=== PATIENT | male | born 1965 | race Caucasian/White ===

== ENCOUNTER 2020-04-18 12:39 | Inpatient (IN) | payer OTHER ==
[~2020-04-18] VITALS: Ht 198.1 cm; Wt 202.1 kg
--- NOTE | 2020-04-18 13:06 | ED Cough/URI ---
General Chief Complaint: Respiratory Problems Stated Complaint: SOA Source: patient Exam Limitations: no limitations History of Present Illness Date Seen by Provider: Apr 18, 2020 Time Seen by Provider: 13:04 Initial Comments To ER with reports of shortness of breath and fever up to 101 for about 48 hours. He tries to cough but has no productivity to the cough. He just had small bowel obstruction surgery by Dr. Alexis at [facility] 2 weeks ago. Timing/Duration: constant Associated Symptoms: cough, shortness of breath Allergies and Home Medications Allergies Coded Allergies: No Known Drug Allergies (Unverified , 04/18/20) Patient Home Medication List Home Medication List Reviewed: Yes Review of Systems Review of Systems Constitutional: see HPI, fever EENTM: see HPI Respiratory: see HPI, cough, short of breath Genitourinary: no symptoms reported Musculoskeletal: no symptoms reported Skin: no symptoms reported Psychiatric/Neurological: No Symptoms Reported Hematologic/Lymphatic: No Symptoms Reported Immunological/Allergic: no symptoms reported Physical Exam Vital Signs - First Documented 04/18/20 12:55 O2 Delivery Room Air Capillary Refill : Height: '" Weight: lbs. oz. kg; BMI Method: General Appearance: WD/WN, no apparent distress, obese Eyes: Bilateral Eye Normal Inspection, Bilateral Eye PERRL, Bilateral Eye EOMI Respiratory: lungs clear, normal breath sounds, no respiratory distress, no accessory muscle use Cardiovascular: no murmur, tachycardia Gastrointestinal: normal bowel sounds, non tender, soft, other (midline abdominal incision is clean dry and intact with a small eschar in the very middle of this without drainage or secondary cellulitis changes.) Extremities: normal range of motion, normal inspection Neurologic/Psychiatric: alert, normal mood/affect, oriented x 3 Skin: normal color, warm/dry Focused Exam Lactate Level 04/18/20 13:00: Lactic Acid Level 2.35*H Lactic Acid Level Laboratory Tests Test 04/18/20 13:00 Lactic Acid Level 2.35 MMOL/L (0.50-2.00) *H Progress/Results/Core Measures Suspected Sepsis SIRS Temperature: Pulse: Respiratory Rate: Laboratory Tests 04/18/20 13:00: White Blood Count 10.1 Blood Pressure / Mean: 04/18/20 13:00: Lactic Acid Level 2.35*H Laboratory Tests 04/18/20 13:00: Creatinine 0.79, Platelet Count 289, Total Bilirubin 0.4 04/18/20 14:08: Results/Orders Lab Results Laboratory Tests Test 04/18/20 13:00 04/18/20 14:08 Range/Units White Blood Count 10.1 4.3-11.0 10^3/uL Red Blood Count 4.20 L 4.35-5.85 10^6/uL Hemoglobin 11.5 L 13.3-17.7 G/DL Hematocrit 37 L 40-54 % Mean Corpuscular Volume 87 80-99 FL Mean Corpuscular Hemoglobin 27 25-34 PG Mean Corpuscular Hemoglobin Concent 32 32-36 G/DL Red Cell Distribution Width 15.9 H 10.0-14.5 % Platelet Count 289 130-400 10^3/uL Mean Platelet Volume 10.6 H 7.4-10.4 FL Neutrophils (%) (Auto) 68 42-75 % Lymphocytes (%) (Auto) 19 12-44 % Monocytes (%) (Auto) 10 0-12 % Eosinophils (%) (Auto) 3 0-10 % Basophils (%) (Auto) 0 0-10 % Neutrophils # (Auto) 6.9 1.8-7.8 X 10^3 Lymphocytes # (Auto) 1.9 1.0-4.0 X 10^3 Monocytes # (Auto) 1.0 0.0-1.0 X 10^3 Eosinophils # (Auto) 0.3 0.0-0.3 10^3/uL Basophils # (Auto) 0.0 0.0-0.1 10^3/uL Sodium Level 140 135-145 MMOL/L Potassium Level 4.3 3.6-5.0 MMOL/L Chloride Level 105 98-107 MMOL/L Carbon Dioxide Level 24 21-32 MMOL/L Anion Gap 11 5-14 MMOL/L Blood Urea Nitrogen 8 7-18 MG/DL Creatinine 0.79 0.60-1.30 MG/DL Estimat Glomerular Filtration Rate > 60 BUN/Creatinine Ratio 10 Glucose Level 119 H 70-105 MG/DL Lactic Acid Level 2.35 *H 0.50-2.00 MMOL/L Calcium Level 8.4 L 8.5-10.1 MG/DL Corrected Calcium 9.1 8.5-10.1 MG/DL Magnesium Level 2.1 1.6-2.4 MG/DL Total Bilirubin 0.4 0.1-1.0 MG/DL Aspartate Amino Transf (AST/SGOT) 48 H 5-34 U/L Alanine Aminotransferase (ALT/SGPT) 33 0-55 U/L Alkaline Phosphatase 59 40-136 U/L Myoglobin 46.7 10.0-92.0 NG/ML Troponin I 0.372 *H <0.028 NG/ML B-Type Natriuretic Peptide 272.0 H <100.0 PG/ML Total Protein 7.5 6.4-8.2 GM/DL Albumin 3.1 L 3.2-4.5 GM/DL Procalcitonin 0.11 H <0.10 NG/ML Coronavirus 2019 ([facility]) Negative Negative My Orders Orders - SAI STINSON APRN Cbc With Automated Diff (04/18/20 12:48) Magnesium (04/18/20 12:48) Chest 1 View, Ap/Pa Only (04/18/20 12:48) Ekg Tracing (04/18/20 12:48) Comprehensive Metabolic Panel (04/18/20 12:48) Myoglobin Serum (04/18/20 12:48) Protime With Inr (04/18/20 12:48) Partial Thromboplastin Time (04/18/20 12:48) O2 (04/18/20 12:48) Monitor-Rhythm Ecg Trace Only (04/18/20 12:48) Lipid Panel (04/19/20 06:00) Ed Iv/Invasive Line Start (04/18/20 12:48) BNP (04/18/20 12:48) Fibrin Degradation Products (04/18/20 12:48) Troponin I (04/18/20 12:48) Blood Culture (04/18/20 12:48) Lactic Acid Analyzer (04/18/20 12:48) Covid 19 Inhouse Test (04/18/20 12:48) Procalcitonin (Pct) (04/18/20 13:12) Coronavirus Sars-Cov-2 So 2018 (04/18/20 13:39) Aspirin Chewable Tablet (Baby Aspirin Ch (04/18/20 14:00) Coronavirus Sars-Cov-2 So 2018 (04/18/20 14:01) Ct Angio Chest W (04/18/20 14:03) Vital Signs/I&O 04/18/20 12:55 B/P (MAP) O2 Delivery Room Air Capillary Refill : Diagnostic Imaging Diagonstic Imaging: Xray, CT Comments NAME: MELVI RUEDA REC#: [id number] PT STATUS: REG ER : 1965 PHYSICIAN: SAI STINSON APRN ADMIT DATE: 04/18/20/ER Draft Date of Exam:04/18/20 CHEST 1 VIEW, AP/PA ONLY INDICATION: Shortness of breath and fever. EXAMINATION: Frontal chest obtained at 01:44 p.m. FINDINGS: Heart is borderline enlarged. There is some minimal infiltrate in the right lung base. There is no pneumothorax or gross pleural fluid. There is a questionable nodular density versus bony artifact over the left upper lobe, consider apical lordotic views for further evaluation. IMPRESSION: Mild right basilar infiltrate. Borderline heart size. Questionable nodular density versus bony artifact over left upper lobe, consider further evaluation with apical lordotic view. Dictated on workstation # [id number] Dict: 04/18/20 1356 Trans: 04/18/20 1359 [facility] [id number] Interpreted by: DIANNA STEEN MD Electronically signed by: Departure Communication (Admissions) Time/Spoke to Admitting Phy: 14:[address] Garner, we'll admit, spoke with Dr. Gomez, we'll get a 2-D echocardiogram today, treatment dose Lovenox, aspirin. Trend the troponin's. Patient is 6 foot 6 and 490 pounds, he will not fit on the CT table for a CT angiogram. We'll do treatment dose Lovenox. Impression Primary Impression: Dyspnea Additional Impressions: Person under investigation for COVID-19 NSTEMI (non-ST elevated myocardial infarction) Disposition: ADMITTED INPATIENT Condition: Stable Admissions Decision to Admit Reason: Admit from ER (General) Decision to Admit/Date: Apr 18, 2020 Time/Decision to Admit Time: 14:23 SAI STINSON APRN Apr 18, 2020 13:06
[2020-04-18 13:21] LABS: BASOPHILS % (AUTO) 0 % (0-10); EOSINOPHILS # (AUTO) 0.3 10^3/uL (0.0-0.3); EOSINOPHILS % (AUTO) 3 % (0-10); HEMATOCRIT 37 % (40-54); HEMOGLOBIN 11.5 G/DL (13.3-17.7); LYMPHOCYTES # (AUTO) 1.9 X 10^3 (1.0-4.0); LYMPHOCYTES % (AUTO) 19 % (12-44); MEAN CORPUSCULAR HEMOGLOBIN 27 PG (25-34); MEAN CORPUSCULAR HGB CONC 32 G/DL (32-36); MEAN CORPUSCULAR VOLUME 87 FL (80-99); MEAN PLATELET VOLUME 10.6 FL (7.4-10.4); MONOCYTES % (AUTO) 10 % (0-12); NEUTROPHILS # (AUTO) 6.9 X 10^3 (1.8-7.8); NEUTROPHILS % (AUTO) 68 % (42-75); PLATELET COUNT 289 10^3/uL (130-400); WHITE BLOOD COUNT 10.1 10^3/uL (4.3-11.0)
[2020-04-18 13:31] LABS: ALBUMIN 3.1 GM/DL (3.2-4.5); CHLORIDE 105 MMOL/L (98-107); POTASSIUM 4.3 MMOL/L (3.6-5.0); SODIUM 140 MMOL/L (135-145)
[2020-04-18 13:32] LABS: CALCIUM 8.4 MG/DL (8.5-10.1)
[2020-04-18 13:33] LABS: GLUCOSE 119 MG/DL (70-105)
[2020-04-18 13:34] LABS: TOTAL PROTEIN 7.5 GM/DL (6.4-8.2)
[2020-04-18 13:35] LABS: BILIRUBIN,TOTAL 0.4 MG/DL (0.1-1.0); CARBON DIOXIDE 24 MMOL/L (21-32)
[2020-04-18 13:37] LABS: ALKALINE PHOSPHATASE 59 U/L (40-136); CREATININE SERUM 0.79 MG/DL (0.60-1.30); GFR ESTIMATED > 60
[2020-04-18 13:38] LABS: BUN/CREATININE RATIO 10
[2020-04-18 13:40] LABS: ALANINE AMINOTRANSFERASE 33 U/L (0-55); MAGNESIUM 2.1 MG/DL (1.6-2.4)
--- NOTE | 2020-04-18 13:50 | NUR ---
notified at 1351 0.372 trop , lactid 2.35
[2020-04-18] MEDS ORDERED: ASPIRIN 81 MG CHEW (CHILDREN'S ASA) PO ONE (14:00)
--- NOTE | 2020-04-18 14:00 | Diagnostic Imaging Report ---
INDICATION: Shortness of breath and fever. EXAMINATION: Frontal chest obtained at 01:44 p.m. FINDINGS: Heart is borderline enlarged. There is some minimal infiltrate in the right lung base. There is no pneumothorax or gross pleural fluid. There is a questionable nodular density versus bony artifact over the left upper lobe, consider apical lordotic views for further evaluation. IMPRESSION: Mild right basilar infiltrate. Borderline heart size. Questionable nodular density versus bony artifact over left upper lobe, consider further evaluation with apical lordotic view. Dictated by: Dictated on workstation # [id number]
[2020-04-18 14:22] VITALS: BP 129/77
[2020-04-18 14:47] LABS: INR 1.2 (0.8-1.4); PROTHROMBIN TIME PATIENT 15.9 SEC (12.2-14.7)
[2020-04-18] MEDS ORDERED: GABAPENTIN 300 MG (NEURONTIN) CAP PO ONE (15:00)
--- NOTE | 2020-04-18 15:07 | History & Physical-Hospitalist ---
History of Present Illness HPI/Chief Complaint Pt is a 54yoCM with a PMH of spinal stenosis and recent SBO s/p resection at [facility] in [place] who presented to the ER due to SOB and fever. He states that he had been doing well post op but then developed a fever over the past couple of days with SOB. He denies any sick contacts other than being in the hospital. He denies any abnormal leg swelling. He states his SOB is worse when he attempts to take a deep breath and he feels like he can only take half as deep of a breath as normal. Source: patient Date Seen 04/18/20 Time Seen by a Provider: 15:08 Attending Physician Nataly Barrios MD PCP Referring Physician Date of Admission Apr 18, 2020 at 14:42 Home Medications & Allergies Home Medications Reviewed patient Home Medication Reconciliation performed by pharmacy medication reconciliations financial services technician and/or nursing. Patients Allergies have been reviewed. Allergies Allergies Coded Allergies Tetanus Vaccines and Toxoid (Verified Allergy, Intermediate, Rash, 04/18/20) STATES HE GETS 104 FEVER ALONG WITH A RASH AND KNOTS WHERTE THE ADMINISTRATION OCCURED Past Kryqlbs-Rztxok-Nmhbid Hx Past Med/Social Hx: Reviewed Nursing Past Med/Soc Hx Patient Social History Marrital Status: Alcohol Use: Denies Use Smoking Status: Never a Smoker Recent Foreign Travel: No Contact w/other who traveled: No Recent Infectious Disease Expo: No Past Medical History Surgeries: Bowel Surgery Musculoskeletal: Chronic Back Pain Family History Reviewed Nursing Family Hx No Pertinent Family Hx Review of Systems Constitutional: chills, fever EENTM: no symptoms reported Respiratory: cough; No phlegm; short of breath Cardiovascular: No chest pain, No edema, No Hx of Intervention Gastrointestinal: see HPI; No abdominal pain, No constipation, No diarrhea, No nausea, No vomiting Genitourinary: no symptoms reported Musculoskeletal: no symptoms reported Skin: no symptoms reported Psychiatric/Neurological: No Symptoms Reported Physical Exam Physical Exam Vital Signs Vital Signs - First Documented 04/18/20 04/18/20 04/18/20 04/20/20 12:55 14:22 17:04 22:59 Temp 37.2 Pulse 81 Resp 22 B/P (MAP) 129/77 (94) Pulse Ox 94 O2 Delivery Room Air O2 Flow Rate 1.00 FiO2 50 Capillary Refill : Less Than 3 Seconds Height, Weight, BMI Height: '" Weight: lbs. oz. kg; BMI Method: General Appearance: No Apparent Distress, WD/WN, Obese Eyes: Bilateral Eye Normal Inspection, Bilateral Eye PERRL HEENT: Normal ENT Inspection, Moist Mucous Membranes Neck: Normal Inspection, Supple Respiratory: Lungs Clear (though auscultation limited by body habitus); No Crackles, No Rhonci, No Wheezing Cardiovascular: Regular Rate, Rhythm, No Murmur Gastrointestinal: Normal Bowel Sounds, Non Tender, Soft Neurologic/Psychiatric: Alert, Oriented x3, Normal Mood/Affect Skin: Normal Color, Warm/Dry Results Results/Procedures Labs Laboratory Tests 04/21/20 12:35 Patient resulted labs reviewed. Imaging: Reviewed Imaging Report Imaging [facility] [place] NAME: MELVI RUEDA REC#: [id number] PT STATUS: REG ER : 1965 PHYSICIAN: SAI STINSON APRN ADMIT DATE: 04/18/20/ER Draft Date of Exam:04/18/20 CHEST 1 VIEW, AP/PA ONLY INDICATION: Shortness of breath and fever. EXAMINATION: Frontal chest obtained at 01:44 p.m. FINDINGS: Heart is borderline enlarged. There is some minimal infiltrate in the right lung base. There is no pneumothorax or gross pleural fluid. There is a questionable nodular density versus bony artifact over the left upper lobe, consider apical lordotic views for further evaluation. IMPRESSION: Mild right basilar infiltrate. Borderline heart size. Questionable nodular density versus bony artifact over left upper lobe, consider further evaluation with apical lordotic view. Dictated on workstation # [id number] Dict: 04/18/20 1356 Trans: 04/18/20 1359 [facility] [phone] Interpreted by: DIANNA STEEN MD Electronically signed by: Assessment/Plan Admission Diagnosis Dyspnea Admission Status: Inpatient Order (span 2 midnights) Reason for Inpatient Admission: see below Assessment and Plan Dyspnea Etiology unclear D dimer very elevated though may be related to recent surgery unfortunately cannot get a CTA or VQ scan due to patient's weight Lovenox to cover for now Dopplers ordered of lower extremities COVID PCR pending Procal is 0.11 so will defer abx for now elevated troponin ASA given Cardiology consulted, appreciate recs Telemetry trend Spinal stenosis Continue home gabapentin DVT ppx: Lovenox Critical Care Critically Ill Patient Diagnosis/Problems Diagnosis/Problems (1) Elevated d-dimer (2) Hypoxia (3) Morbid obesity (4) Person under investigation for COVID-19 Status: Acute (5) Dyspnea Status: Acute Qualifiers: Dyspnea type: acute respiratory distress Qualified Codes: R06.03 - Acute respiratory distress (6) NSTEMI (non-ST elevated myocardial infarction) Status: Acute NATALY BARRIOS MD Apr 18, 2020 15:07
--- NOTE | 2020-04-18 15:13 | NUR ---
report taken at this time from LILIANA Pascal from emergency dept., this RN will assume care of this patient when he arrives to room 413-1.
--- NOTE | 2020-04-18 15:15 | NUR ---
called and spoke with Breonna Morales spouse, notified and updated with results and admission to room 413.
--- NOTE | 2020-04-18 15:53 | NUR ---
MELVI RUEDA admitted to room 413-1, with an admitting diagnosis of ELEVATED TROPONIN, on 04/18/20 from ER via CART, accompanied by ED COVID STAFF.MELVI RUEDA introduced to surroundings, call light, bed controls, phone, TV, temperature control, lights, meal times, smoking policy, visitor policy, side rail policy, bathrooms and showers. Patient Rights given to patient in the handbook. MELVI RUEDA verbalizes understanding that [facility] is not responsible for the loss or damage to any personal effects or valuables that are kept in the patients posession during their hospitalization. MELVI RUEDA verbalizes understanding of Interdisciplinary Patient Education. Patient and/or family were informed about the Rapid Response Team and its purpose.
[2020-04-18] MEDS ORDERED: CATHETER FLUSH 10 ML SYR IV PRN (16:15)
[2020-04-18] MEDS: LACTATED RINGERS 1,000 ML IV SCH (16:17)
[2020-04-18 17:04] VITALS: BP 153/65
--- NOTE | 2020-04-18 17:31 | Consultation-Cardiology ---
HPI-Cardiology Cardiology Consultation: Date of Consultation 04/18/20 Date of Admission Attending Physician Clotilde Barrios MD Admitting Physician Consulting Physician Keisha GOMEZ MD HPI: Time Seen by a Provider: 17:31 Chief Complaint: Shortness of breath This is a 54-year-old gentleman with morbid obesity. He had recent small bowel obstruction requiring resection in [facility]. He presented to the ER with complains of shortness of breath and fever for a day. He has been having shortness of breath for a few days now. Denies active smoking. Pertinent family history is negative. He denies any chest pain, syncope or near syncope. He denies any leg swelling. Review of Systems-Cardiology Review of Systems Constitutional: As described under HPI; No As described under HPI, No no symptoms reported, No chills, No fever, No lightheadedness Eyes: No As described under HPI, No no symptoms reported, No blindness, No blurred vision, No contact lenses, No drainage, No decreased acuity, No foreign body sensation, No pain, No vision change Ears/Nose/Throat: No As described under HPI, No no symptoms reported, No chroni c hearing loss, No ear discharge, No ear pain, No nasal drainage, No ulcerations Respiratory: No no symptoms reported; As described under HPI; No As described under HPI, No cough, No orthopnea; shortness of breath; No SOB with excertion Cardiovascular: No no symptoms reported; As described under HPI; No As described under HPI, No chest pain, No edema, No irregular heart rate, No lightheadedness, No palpitations Gastrointestinal: No no symptoms reported, No As described under HPI, No abdomen distended, No abdominal pain, No blood streaked bowels, No constipation, No diarrhea, No nausea, No vomiting, No stool coloration changes Genitourinary: No As described under HPI, No burning, No dysuria, No discharge, No frequency, No flank pain, No hematuria, No urgency Skin: No rash, No skin related problems, No ulcerations Psychiatric/Neurological: No anxiety, No depression, No seizure, No focal weakness, No syncope Hematologic: No bleeding abnormalities UIG-Uwepsw-Yfziug Hx Patient Social History Marrital Status: Alcohol Use: Denies Use Smoking Status: Never a Smoker Recent Foreign Travel: No Recent Infectious Disease Expo: No Hospitalization with Isolation: Denies Past Medical History PMH As described under Assessment. Allergies and Home Medications Allergies Coded Allergies: Tetanus Vaccines and Toxoid (Verified Allergy, Intermediate, Rash, 04/18/20) STATES HE GETS 104 FEVER ALONG WITH A RASH AND KNOTS WHERTE THE ADMINISTRATION OCCURED Home Medications Acetaminophen 500 Mg Tablet, 1,000 MG PO Q6H PRN for PAIN-MILD (1-4) OR TEMPATURE, (Reported) Calcium Carbonate 400 Mg Tab.chew, 400-800 MG PO PRN PRN for INDIGESTION, (Reported) Gabapentin 300 Mg Capsule, 300 MG PO TID, (Reported) Multivits,Ca,Min/Iron/FA/Lycop 1 Each Tablet, 1 EACH PO DAILY, (Reported) Patient Home Medication List Home Medication List Reviewed: Yes Physical Exam-Cardiology Physical Exam Vital Signs/I&O 04/21/20 04/21/20 04/21/20 04/21/20 06:46 07:08 07:45 08:23 Temp 36.4 Pulse 93 92 Resp 20 B/P (MAP) 136/77 (96) Pulse Ox 90 94 O2 Delivery Vapotherm Vapotherm Vapotherm O2 Flow Rate 20.00 20.00 20.00 55.00 FiO2 55 55 04/21/20 04/21/20 04/21/20 10:20 11:00 14:18 Temp 36.6 Pulse 95 Resp 20 B/P (MAP) 138/86 (103) Pulse Ox 92 93 92 O2 Delivery Nasal Cannula Vapotherm Nasal Cannula O2 Flow Rate 4.00 20.00 5.00 55.00 04/21/20 00:00 Intake Total 2190 ml Output Total 1025 ml Balance 1165 ml Capillary Refill : Less Than 3 Seconds Constitutional: AAO x 3, other (morbid obesity.) HEENT: PERRL; No discharge; hearing is well preserved, oral hygience is good; No ulceration, No xanthelasmas are seen Neck: No carotid bruit; carotid pulses are 2 + bilaterally Respiratory: accessory muscle use, respiratory distress, chest is bilaterally symmetric, lungs clear to auscultation Cardiovascular: regular rate-rhythm, tachycardia, S1 and S2; No diastolic murmur, No systolic murmur Gastrointestinal: soft, distended, audible bowel sounds; No spleenomegaly Rectal: deferred Extremities: normal range of motion, non-tender, normal inspection; No clubbing, No cyanosis, No significant edema Neurologic/Psychiatric: no motor/sensory deficits, alert, normal mood/affect, oriented x 3, power is 5/5 both on sides Skin: normal color, warm/dry; No rash, No ulcerations Data Review Labs Laboratory Tests 04/21/20 12:35: Sodium Level 140, Potassium Level 3.5L, Chloride Level 106, Carbon Dioxide Level 22, Anion Gap 12, Blood Urea Nitrogen 9, Creatinine 0.81, Estimat Glomerular Filtration Rate > 60, BUN/Creatinine Ratio 11, Glucose Level 137H, Calcium Level 8.2L Microbiology 04/19/20 MRSA Screen - Final, Complete MRSA not isolated 04/18/20 Blood Culture - Preliminary, Resulted No growth ECG Impression ECG Initial ECG Rhythm: S.Tach, PVC A/P-Cardiology Assessment/Admission Diagnosis Shortness of breath, acute respiratory failure, Morbid obesity, Recent abdominal surgery, Positive D dimer, Positive cardiac enzymes. Plan Acute respiratory failure, respiratory distress. Patient was requiring 4-5 L of oxygen, oxygen saturation in the low 90s. Unclear etiology. Positive D dimer, recent abdominal surgery. CT angiography of the chest is indicated. Agree with starting Lovenox. Lower extremity Dopplers. Positive cardiac enzymes with shortness of breath. Non-ST elevation [place] cannot be ruled out. Will recommend an echocardiogram and serial troponin. Morbid obesity Recent abdominal surgery, deferred to the primary team. Thank you for your consultation. Please call me if you have any questions. Lucina Gomez MD, FACP, FACC, FSCAI, FHRS, CCDS Interventional Cardiology Cardiac Electrophysiology Vascular Medicine and Endovascular Interventions Keisha GOMEZ MD Apr 18, 2020 17:31
[2020-04-18] MEDS: ENOXAPARIN 300 MG/3 ML (LOVENOX) MULTI-DOSE VIAL SQ SCH (17:43)
[2020-04-18] MEDS ORDERED: IOHEXOL 350 MG/ML 100 ML (OMNIPAQUE 350) VIAL IV ONE (18:30)
[2020-04-18] MEDS ORDERED: NS 100 ML (IVPB) BAG IV ONE (18:30)
[2020-04-18] MEDS ORDERED: HOLD METFORMIN - RECEIVED CONTRAST 20 ML VIAL IV SCH (18:30)
[2020-04-18] MEDS: RT-ALBUTEROL INHALER HFA (VENTOLIN HFA) 18 GM IH SCH ×2 (19:44→22:34)
[2020-04-18 20:20] VITALS: BP 136/75
[2020-04-18] MEDS: GABAPENTIN 300 MG (NEURONTIN) CAP PO SCH (20:36)
--- NOTE | 2020-04-18 21:10 | NUR ---
PT DOWN TO CT PER WHEELCHAIR AT THIS TIME.
--- NOTE | 2020-04-18 21:30 | NUR ---
PT BACK TO ROOM FROM CT PER WHEELCHAIR. ASSISTED PT BACK TO BED. BED RAILS X4 FOR SAFETY AND PER PT REQUEST. ALL NEEDS MET AT THIS TIME.
--- NOTE | 2020-04-18 21:50 | Diagnostic Imaging Report ---
PROCEDURE: CT angiography of the chest with contrast. TECHNIQUE: Multiple contiguous axial images were obtained through the chest after uneventful bolus administration of intravenous contrast. 3D reconstructed CTA MIP acquisitions were also performed. Auto Exposure Controls were utilized during the CT exam to meet ALARA standards for radiation dose reduction. DATE: April 18, 2020. COMPARISON: Chest radiograph April 18, 2020. INDICATION: 54-year-old male, shortness of breath and chest pain. FINDINGS: There is a 5 mm calcified left lower lobe granuloma on axial image 80. There is a nonspecific airspace consolidation in the right lower lobe on axial image 77. There is no identified pneumothorax. There is no pleural effusion. The central airways are patent. There is pulmonary embolus bridging across the main pulmonary artery extending into the left and right pulmonary arteries as well as upper, middle lobe, and lower lobe segmental and subsegmental branches. The main pulmonary artery diameter measures 3.1 cm which is just beyond upper limits of normal and may indicate elevated pressures. The heart is not enlarged. There is no identified pericardial effusion. There is no identified noncalcified abnormally enlarged mediastinal, hilar, or axillary lymph node meeting CT size criteria for adenopathy. There is a right pericardial lesion measuring 5.1 x 2.7 cm in size with internal attenuation of -23 Hounsfield units. 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 The imaged portions of the upper abdomen are unremarkable. There are degenerative changes of the spine. There is no identified acute bony abnormality. IMPRESSION: CT CHEST. 1. Extensive pulmonary embolus bridging across the main pulmonary artery into right and left pulmonary arteries as well as upper, middle lobe, and lower lobe segmental and subsegmental branches. There is slight dilation of the main pulmonary artery diameter which may relate to elevated pressures. 2. Nonspecific focal airspace consolidation in the right lower lobe which could relate to infarct or other alveolar consolidative process. Findings called on 2144 hours on April 18, 2020. Dictated by: Dictated on workstation # [id number]
--- NOTE | 2020-04-18 21:50 | NUR ---
DR. METZGER CALLED THIS RN IN REFERENCE TO HIS CT SCAN SHOWING POSITIVE FOR A PE. PT ALREADY ON THERAPEUTIC ANTICOAGULATION PER DR. RUBIO HAVE BEEN STABLE. WILL CONTINUE TO MONITOR PT AND REPORT ANY CHANGES IN PT CONDITION.
[2020-04-18 23:15] VITALS: BP 130/72
[2020-04-19] VITALS (11 sets, daily range): BP systolic 109–163; BP diastolic 64–102
[2020-04-19] MEDS: LACTATED RINGERS 1,000 ML IV SCH (01:47)
[2020-04-19] MEDS: RT-ALBUTEROL INHALER HFA (VENTOLIN HFA) 18 GM IH SCH ×6 (02:55→21:48)
[2020-04-19] MEDS: ENOXAPARIN 300 MG/3 ML (LOVENOX) MULTI-DOSE VIAL SQ SCH ×2 (04:46→16:24)
[2020-04-19 05:01] LABS: BASOPHILS % (AUTO) 0 % (0-10); EOSINOPHILS # (AUTO) 0.1 10^3/uL (0.0-0.3); EOSINOPHILS % (AUTO) 1 % (0-10); HEMATOCRIT 31 % (40-54); HEMOGLOBIN 9.5 G/DL (13.3-17.7); LYMPHOCYTES # (AUTO) 1.9 X 10^3 (1.0-4.0); LYMPHOCYTES % (AUTO) 21 % (12-44); MEAN CORPUSCULAR HEMOGLOBIN 27 PG (25-34); MEAN CORPUSCULAR HGB CONC 31 G/DL (32-36); MEAN CORPUSCULAR VOLUME 87 FL (80-99); MEAN PLATELET VOLUME 9.6 FL (7.4-10.4); MONOCYTES # (AUTO) 0.8 X 10^3 (0.0-1.0); MONOCYTES % (AUTO) 9 % (0-12); NEUTROPHILS % (AUTO) 69 % (42-75); PLATELET COUNT 275 10^3/uL (130-400); WHITE BLOOD COUNT 8.8 10^3/uL (4.3-11.0)
[2020-04-19 05:14] LABS: CHLORIDE 105 MMOL/L (98-107); POTASSIUM 3.6 MMOL/L (3.6-5.0); SODIUM 139 MMOL/L (135-145)
[2020-04-19 05:15] LABS: ALBUMIN 2.9 GM/DL (3.2-4.5); CALCIUM 7.9 MG/DL (8.5-10.1)
[2020-04-19 05:16] LABS: TRIGLYCERIDES 106 MG/DL (<150); VLDL CHOLESTEROL 21 MG/DL (5-40)
[2020-04-19 05:17] LABS: GLUCOSE 136 MG/DL (70-105); TOTAL PROTEIN 6.4 GM/DL (6.4-8.2)
[2020-04-19 05:18] LABS: CARBON DIOXIDE 23 MMOL/L (21-32)
[2020-04-19 05:19] LABS: BILIRUBIN,TOTAL 0.4 MG/DL (0.1-1.0)
[2020-04-19 05:20] LABS: ALKALINE PHOSPHATASE 58 U/L (40-136); CREATININE SERUM 0.78 MG/DL (0.60-1.30); GFR ESTIMATED > 60
--- NOTE | 2020-04-19 05:20 | NUR ---
COVID RESULTS CAME BACK NEGATIVE. DR. METZGER NOTIFIED. ORDER RECEIVED TO DISCONTINUE ISOLATION AT THIS TIME.
[2020-04-19 05:21] LABS: CHOLESTEROL 114 MG/DL (< 200)
[2020-04-19 05:22] LABS: BUN/CREATININE RATIO 13
[2020-04-19 05:23] LABS: HDL CHOLESTEROL 22 MG/DL (40-60)
[2020-04-19 05:24] LABS: ALANINE AMINOTRANSFERASE 25 U/L (0-55)
--- NOTE | 2020-04-19 08:11 | Pulmonary Consultation ---
History of Present Illness History of Present Illness Date Seen by Provider: Apr 19, 2020 Time Seen by Provider: 13:30 Date of Admission Allergies and Home Medications Allergies Coded Allergies: Tetanus Vaccines and Toxoid (Verified Allergy, Intermediate, Rash, 04/18/20) STATES HE GETS 104 FEVER ALONG WITH A RASH AND KNOTS WHERTE THE ADMINISTRATION OCCURED Home Medications Acetaminophen 500 Mg Tablet, 1,000 MG PO Q6H PRN for PAIN-MILD (1-4) OR TEMPATURE, (Reported) Calcium Carbonate 400 Mg Tab.chew, 400-800 MG PO PRN PRN for INDIGESTION, (Reported) Gabapentin 300 Mg Capsule, 300 MG PO TID, (Reported) Multivits,Ca,Min/Iron/FA/Lycop 1 Each Tablet, 1 EACH PO DAILY, (Reported) Past Uavnbti-Fcwwxi-Avzvgx Hx Past Med/Social Hx: Reviewed Nursing Past Med/Soc Hx Patient Social History Alcohol Use: Denies Use Smoking Status: Never a Smoker Recent Foreign Travel: No Contact w/Someone Who Travel: No Recent Infectious Disease Expo: No Physical Abuse: No Sexual Abuse: No Mistreated: No Past Medical History Bowel Surgery Chronic Back Pain Family Medical History Reviewed Nursing Family Hx FH: cancer 19 FATHER, No Pertinent Family Hx Review of Systems Time Seen by Provider: 13:31 Sepsis Event Evaluation Height, Weight, BMI Height: '" Weight: lbs. oz. kg; 51.62 BMI Method: Exam Exam Vital Signs Date Time Temp Pulse Resp B/P (MAP) Pulse Ox O2 Delivery O2 Flow Rate FiO2 04/19/20 04:43 37.3 86 18 109/64 (79) 93 Nasal Cannula 1.50 04/19/20 02:55 Nasal Cannula 1.00 04/19/20 01:44 37.0 101 19 124/85 (98) 93 Nasal Cannula 1.50 04/19/20 01:00 105 04/18/20 23:15 36.8 92 19 130/72 (91) 96 Nasal Cannula 1.50 04/18/20 22:35 92 Nasal Cannula 1.00 04/18/20 20:37 Nasal Cannula 1.50 04/18/20 20:20 37.1 103 20 136/75 (95) 95 Nasal Cannula 1.50 04/18/20 19:44 93 Nasal Cannula 1.00 04/18/20 19:00 106 04/18/20 17:55 95 Nasal Cannula 1.50 04/18/20 17:04 37.2 100 20 153/65 95 Nasal Cannula 1.50 1.00 04/18/20 16:50 90 04/18/20 14:24 94 Nasal Cannula 1.00 04/18/20 14:22 81 22 129/77 (94) 94 Nasal Cannula 1.00 04/18/20 12:55 Room Air I & O 04/19/20 07:00 Intake Total 1391 ml Balance 1391 ml Height & Weight Height: '" Weight: lbs. oz. kg; 51.62 BMI Method: General Appearance: No Apparent Distress, WD/WN, Obese HEENT: Normal ENT Inspection, Moist Mucous Membranes Neck: Normal Inspection, Supple Respiratory: Lungs Clear (though auscultation limited by body habitus); No Crackles, No Rhonci, No Wheezing Cardiovascular: Regular Rate, Rhythm, No Murmur Capillary Refill: Less Than 3 Seconds Gastrointestinal: normal bowel sounds, non tender, soft, other (midline ab dominal incision is clean dry and intact with a small eschar in the very middle of this without drainage or secondary cellulitis changes.) Neurologic/Psychiatric: Alert, Oriented x3, Normal Mood/Affect Skin: Normal Color, Warm/Dry Results Lab Laboratory Tests 04/18/20 13:00 04/19/20 04:39 Assessment/Plan Assessment/Plan Extensive Bilateral Pulmonary Emboli Continue Lovenox Dopplers pending COVID PCR negative Echo pending elevated troponin Likely due to PE Cardiology consulted Telemetry Spinal stenosis Continue home gabapentin DVT ppx: Lovenox SAAD AMBRIZ DO Apr 19, 2020 08:11
[2020-04-19] MEDS: GABAPENTIN 300 MG (NEURONTIN) CAP PO SCH ×3 (08:12→20:36)
[2020-04-19] MEDS: ASPIRIN 81 MG CHEW (CHILDREN'S ASA) PO SCH (08:13)
[2020-04-19] MEDS ORDERED: GABA300C PO (09:17)
[2020-04-19] MEDS ORDERED: ACET-2267 PO (09:17)
[2020-04-19] MEDS ORDERED: CALC10009 PO (09:17)
[2020-04-19] MEDS ORDERED: MULT-1030 PO (09:17)
--- NOTE | 2020-04-19 09:17 | NUR ---
SPOKE WITH THE PT AND CALLED [facility] TO COMPLETE THE MED REC 04-06-2020 GABAPENTIN 300MG #90/30DS OTC MEDS: TYLENOL MENS MTV TUMS
--- NOTE | 2020-04-19 10:57 | Progress Note - Hospitalist ---
Subjective HPI/CC On Admission Date Seen by Provider: Apr 19, 2020 Time Seen by Provider: 10:53 Pt is a 54yoCM with a PMH of spinal stenosis and recent SBO s/p resection at [facility] in [place] who presented to the ER due to SOB and fever. He states that he had been doing well post op but then developed a fever over the past couple of d ays with SOB. He denies any sick contacts other than being in the hospital. He denies any abnormal leg swelling. He states his SOB is worse when he attempts to take a deep breath and he feels like he can only take half as deep of a breath as normal. Subjective/Events-last exam Pt reports breathing better today. No complaints. Discussed CTA findings consistent with PE. Focused Exam Lactate Level 04/18/20 15:15: Lactic Acid Level 2.52*H 04/18/20 18:00: Lactic Acid Level 2.23*H 04/18/20 20:28: Lactic Acid Level 1.95 Objective Exam Vital Signs Vital Signs Date Time Temp Pulse Resp B/P (MAP) Pulse Ox O2 Delivery O2 Flow Rate FiO2 04/19/20 10:39 90 Nasal Cannula 2.00 04/19/20 08:00 36.8 100 20 136/81 (99) Capillary Refill : Less Than 3 Seconds General Appearance: No Apparent Distress, WD/WN, Obese Respiratory: Lungs Clear, No Accessory Muscle Use, Other (on 2lpm) Cardiovascular: Regular Rate, Rhythm, No Murmur Gastrointestinal: Normal Bowel Sounds, Soft Extremity: No Calf Tenderness, No Pedal Edema Neurologic/Psychiatric: Alert, Oriented x3 Results/Procedures Lab Laboratory Tests 04/18/20 13:00 04/19/20 04:39 Patient resulted labs reviewed. Imaging: Reviewed Imaging Report Assessment/Plan Assessment and Plan Assess & Plan/Chief Complaint Extensive Bilateral Pulmonary Emboli Weight actually 202kg so was able to get CTA which revealed saddle embolus Continue Lovenox Dopplers done and read pending COVID PCR negative Echo pending I discussed with Dr Gomez who will review echo to evaluate for any right heart strain elevated troponin Likely due to PE Cardiology consulted, appreciate recs Telemetry trend Spinal stenosis Continue home gabapentin DVT ppx: Lovenox Diagnosis/Problems Diagnosis/Problems (1) Elevated d-dimer (2) Hypoxia (3) Morbid obesity (4) Person under investigation for COVID-19 Status: Acute (5) Dyspnea Status: Acute (6) NSTEMI (non-ST elevated myocardial infarction) Status: Acute (7) Bilateral pulmonary embolism Status: Acute (8) Saddle pulmonary embolus Qualifiers: Chronicity: acute Acute cor pulmonale presence: unspecified Qualified Codes: I26.92 - Saddle embolus of pulmonary artery without acute cor pulmonale Clinical Quality Measures DVT/VTE Risk/Contraindication: Risk Factor Score Per Nursin RFS Level Per Nursing on Admit: 4+=Very High NATALY DANIELSON MD Apr 19, 2020 10:57
--- NOTE | 2020-04-19 11:47 | Diagnostic Imaging Report ---
CLINICAL INDICATION: Patient with calf cramping in left leg. Postop bowel resection two weeks ago. COMPARISON: None. PROCEDURE: Real-time lower extremity venous Doppler duplex evaluation is performed from the inguinal region through the popliteal fossa. The calf venous structures are also evaluated. FINDINGS: LEFT LOWER EXTREMITY: There is occlusive thrombus within the left popliteal vein which involves visualized portions of the posterior tibial and peroneal veins. The remainder of the left lower extremity deep venous structures more proximally are patent. RIGHT LOWER EXTREMITY: The right deep venous system is well visualized and is easily compressible. There is no evidence of deep venous thrombosis, valvular incompetence, or significant collateral circulation. IMPRESSION: 1: There is occlusive deep venous thrombosis involving the popliteal vein and visualized posterior tibial and peroneal veins. 2: There is no ultrasound Doppler evidence of deep venous thrombosis in the right lower extremity. Results of this report were discussed with Dr. Clotilde Barrios via the telephone on 04/19/2020 at 1140 hours. Dictated by: Dictated on workstation # [id number]
[2020-04-19] MEDS ORDERED: NS IV 1000 ML 1,000 ML ONE (15:19)
[2020-04-19] MEDS ORDERED: LIDOCAINE 1% INJ 20 ML 20 ML VIAL ONE (15:19)
[2020-04-19] MEDS ORDERED: HEParin (CATH LAB) 2,000 ML IV ONE (15:20)
[2020-04-19] MEDS ORDERED: HEParin 1000 UNIT/ML (10ML VIAL) FOR BOLUS ONE (15:21)
[2020-04-19] MEDS ORDERED: WATER IV ONE ×6 (15:30)
[2020-04-19] MEDS ORDERED: TENECTEPLASE IV ONE ×6 (15:30)
--- NOTE | 2020-04-19 16:00 | NUR ---
PT WAS TAKEN OFF FLOOR FOR PROCEDURE
[2020-04-19] MEDS ORDERED: fentaNYL INJECTION 100 MCG/2 ML AMP ONE (16:06)
[2020-04-19] MEDS ORDERED: MIDAZOLAM 5 MG/5 ML (VERSED) VIAL ONE (16:06)
[2020-04-19] MEDS ORDERED: HEParin DRIP 25000 UNIT/500ML 500 ML IV ONE (16:37)
[2020-04-19] MEDS ORDERED: TENECTEPLASE 5 MG in NS IV 500 ML 500 ML IV SCH (16:45)
--- NOTE | 2020-04-19 17:05 | Cardiac Procedure Note-CS/ASA ---
Pre-Procedure Note Pre-Op Procedure Note H&P Reviewed The H&P was reviewed, patient examined and no changes noted. Date H&P Reviewed: Apr 19, 2020 Time H&P Reviewed: 09:00 Conscious Sedation Pre-Proced Time 09:00 ASA Score 3 For ASA 3 and 4: Consider anesthesia and medical clearance. Also, for patients with a history of failed moderate sedation consider anesthesia. Airway Lungs Heart ASA score ASA 1: a normal healthy patient ASA 2: a patient with a mild systemic disease (mid diabetes, controlled hypertension, obesity ASA 3: a patient with a severe systemic disease that limits activity (angina, COPD, prior Myocardial infarction) ASA 4: a patient with an incapacitating disease that is a constant threat to life (CHF, renal failure) ASA 5: a moribund patient not expected to survive 24 hrs. (ruptured aneurysm) ASA 6: a declared brain- patient whose organs are being harvested. For emergent operations, add the letter E after the classification Mallampati Classification Grade 1 Sedation Plan Analgesia, Amnesia, Plan communicated to team members, Discussed options with patient/fam, Discussed risks with patient/fam The patient is an appropriate candidate to undergo the planned procedure, sedation, and anesthesia. The patient immediately re-assessed prior to indication. Keisha BAIRES MD Apr 19, 2020 17:05
--- NOTE | 2020-04-19 17:06 | Coronary Angiography & PCI ---
Peripheral Angio & Interv Catheter Directed Thrombolysis for PE PERFORMING INTERVENTIONALIST: Dr. Lucina Gomez INDICATION: saddle pulmonary embolism with RV strain PREOPERATIVE INDICATION: saddle pulmonary embolism with RV strain POSTOPERATIVE DIAGNOSIS: saddle pulmonary embolism with RV strain; status post catheter directed thrombolysis. HISTORY: 54 year old male with recent small bowel obstruction surgery in [place] (two weeks ago). He presents with shortness of breath. CT scan of the chest shows saddle embolus with large sub-occlusive thrombi in the right and left PA. e chocardiogram showed RV enlargement with RV dysfunction, increased PA pressure and D-shaped septum suggesting volume and pressure overload. oxygen saturation is 92 percent at 4 L. Therefore this is a hemodynamically significant saddle embolus with [id number] respiratory distress. I discussed at length with the patient and catheter directed thrombolysis was recommended. Informed consent was taken including risk for intracranial hemorrhage and even . Patient accepted all risks and would like to proceed with pulmonary angiogram and possible intervention and thrombolysis. PROCEDURE PERFORMED: 1. Nonselective pulmonary angiogram. 2. Selective bilateral pulmonary angiogram. 3. Right heart catheterization for shortness of breath. 4. RV angiogram. 5. Catheter directed thrombolysis and bilateral pulmonary arteries. 6. Overnight thrombolytic infusion. SPECIMENS: None. ANESTHESIA: Conscious sedation. BLOOD LOSS: 20 mL. COMPLICATIONS: None. CONTRAST USED: 100 ml. FLUOROSCOPY DOSE: 508 Mgy. FLUOROSCOPY TIME: 10.6 minutes. ANTICOAGULATION: IV heparin DESCRIPTION OF PROCEDURE: The patient was brought to the cathode builder after informed consent was taken. All the risks and complications were explained in detail. The patient was draped and prepped in the usual sterile fashion. Access was gained right femoral vein with a 6 Hebrew sheath. We advanced a pigtail catheter over the J-wire and placed it in the main pulmonary artery. Nonselective angiogram was done. The pigtail catheter was then advanced into the right pulmonary artery and a selective angiogram was done. tenecteplase 5 mg was injected slowly. the pigtail catheter was then advanced into the left pulmonary and selective angiogram was done. tenecteplase 5 mg was injected slowly. The pigtail catheter was then pulled back into the RV and RV angiogram was done. Pressures were also measured. The pigtail catheter was then pulled back into the RA and pressure were measured again. We then exchanged for an infusion catheter. However we were not able to get the infusion cath into the right pulmonary artery or the MPA in a stable position. Therefore I exchanged back to a pigtail catheter and that was placed in the main pulmonary artery/right pulmonary artery and thrombolytic infusion was started according to the protocol. IV heparin was also started at 300 units per hour. Infusion will continued overnight. The sheath was sutured in placed. FINDINGS: PA pressure 57/20 mmHg, right pulmonary artery 61/25 mmHg, Left pulmonary artery 58/25 mmHg, RV pressure 61/6 mmHg. RA pressure 14 mmHg. CONCLUSION: Saddle PE with RV strain and mild respiratory distress - s/p catheter directed thrombolysis. Overnight catheter infusion of thrombolytics. We will bring back patient tomorrow. Lucina Gomez MD, FACP, FACC, [facility] Vascular Medicine and Endovascular Interventions Keisha GOMEZ MD Apr 19, 2020 17:05
[2020-04-19] MEDS ORDERED: PATIENT MAY USE OWN MEDS, ALL PO SCH (17:15)
--- NOTE | 2020-04-19 17:49 | Cardiology Progress Note ---
Cardiology SOAP Progress Note Subjective: Respiratory distress, shortness of breath Objective: I&O/Vital Signs 04/21/20 04/21/20 04/21/20 04/21/20 06:46 07:08 07:45 08:23 Temp 36.4 Pulse 93 92 Resp 20 B/P (MAP) 136/77 (96) Pulse Ox 90 94 O2 Delivery Vapotherm Vapotherm Vapotherm O2 Flow Rate 20.00 20.00 20.00 55.00 FiO2 55 55 04/21/20 04/21/20 04/21/20 10:20 11:00 14:18 Temp 36.6 Pulse 95 Resp 20 B/P (MAP) 138/86 (103) Pulse Ox 92 93 92 O2 Delivery Nasal Cannula Vapotherm Nasal Cannula O2 Flow Rate 4.00 20.00 5.00 55.00 04/21/20 00:00 Intake Total 2190 ml Output Total 1025 ml Balance 1165 ml Constitutional: AAO x 3, apparent distress Respiratory: accessory muscle use, respiratory distress, chest is bilaterally symmetric Cardiovascular: regular rate-rhythm, tachycardia, S1 and S2 Gastrointestional: soft, distended, audible bowel sounds Extremities: normal range of motion, non-tender, normal inspection Neurologic/Psychiatric: no motor/sensory deficits, alert, normal mood/affect, oriented x 3 Skin: normal color, warm/dry Results/Procedures: Labs Laboratory Tests 04/21/20 12:35: Sodium Level 140, Potassium Level 3.5L, Chloride Level 106, Carbon Dioxide Level 22, Anion Gap 12, Blood Urea Nitrogen 9, Creatinine 0.81, Estimat Glomerular Filtration Rate > 60, BUN/Creatinine Ratio 11, Glucose Level 137H, Calcium Level 8.2L Microbiology 04/19/20 MRSA Screen - Final, Complete MRSA not isolated 04/18/20 Blood Culture - Preliminary, Resulted No growth A/P: Assessment/Dx: Acute respiratory failure, saddle pulmonary embolism, Acute RV dysfunction, RV strain. Morbid obesity, Recent abdominal surgery, Positive D dimer, Positive cardiac enzymes. Plan: Acute respiratory failure, respiratory distress. Patient was requiring 4-5 L of oxygen, oxygen saturation in the low 90s. Unclear etiology. Positive D dimer, recent abdominal surgery. CT angiography of the chest showed saddle pulmonary embolism with large pulmonary embolism bilaterally. Urgent echocardiogram showed D-shaped septum with RV dysfunction and pulmonary hypertension. Patient was in respiratory distress. I discussed at length with the primary team as well as the patient and recommended catheter directed thrombolysis. Informed consent was taken including 1 percent risk of due to intracranial hemorrhage. Patient accepted all risks and will like to proceed with pulmonary angiogram, possible intervention, catheter directed thrombolysis today. Positive cardiac enzymes with shortness of breath. Likely secondary to large pulmonary embolism. Positive cardiac enzymes in a patient with large pulmonary embolism is a poor prognostic sign. Aggressive therapy is recommended. Morbid obesity Recent abdominal surgery, deferred to the primary team. Thank you for your consultation. Please call me if you have any questions. Lucina Gmoez MD, FACP, FACC, FSCAI, FHRS, CCDS Interventional Cardiology Cardiac Electrophysiology Vascular Medicine and Endovascular Interventions Focused Exam Lactate Level 04/18/20 18:00: Lactic Acid Level 2.23*H 04/18/20 20:28: Lactic Acid Level 1.95 Keisha GOMEZ MD Apr 19, 2020 17:49
--- NOTE | 2020-04-19 17:55 | NUR ---
DR BAIRES AT BEDSIDE NOTIFIED THIS NURSE TO WATCH FOR ECTOPY. IF MULTIPLE OR RUNS OF PVCS ARE NOTED THE NURSED NEEDS TO CALL DR BAIRES AND TO PULL OUT THE SHEATH 6 INCHES. WILL CONTINUE TO MONITOR.
[2020-04-19] MEDS ORDERED: LIDOCAINE UROJET 2% GEL 10 ML PKG ONE (18:16)
[2020-04-19] MEDS ORDERED: morphine INJ 10 MG/ML 1ML (SYR OR VIAL) IVP PRN (19:15)
[2020-04-19] MEDS: morphine INJ 4 MG/ML 1 ML (VIAL/SYRINGE) IV PRN (20:37)
[2020-04-19] MEDS: NS IV 1000 ML 1,000 ML IV SCH (22:06)
[2020-04-19] MEDS ORDERED: HEParin DRIP 25000 UNIT/500ML 500 ML IV SCH (23:20)
[2020-04-19] MEDS: HEParin 1000 UNIT/ML (10ML VIAL) FOR BOLUS IV SCH (23:25)
[2020-04-19] MEDS ORDERED: HEParin 1000 UNIT/ML (10ML VIAL) FOR BOLUS IV ONE (23:30)
[2020-04-19] MEDS ORDERED: ASPIRIN 325 MG (5 GR) TABLET PO ONE (23:30)
[2020-04-20] VITALS (21 sets, daily range): BP systolic 118–171; BP diastolic 70–118
[2020-04-20] MEDS: RT-ALBUTEROL INHALER HFA (VENTOLIN HFA) 18 GM IH SCH ×7 (02:57→22:36)
[2020-04-20 03:31] LABS: BASOPHILS % (AUTO) 0 % (0-10); EOSINOPHILS # (AUTO) 0.2 10^3/uL (0.0-0.3); EOSINOPHILS % (AUTO) 2 % (0-10); HEMATOCRIT 29 % (40-54); HEMOGLOBIN 8.9 g/dL (13.3-17.7); LYMPHOCYTES # (AUTO) 1.5 10^3/uL (1.0-4.0); LYMPHOCYTES % (AUTO) 18 % (12-44); MEAN CORPUSCULAR HEMOGLOBIN 27 pg (25-34); MEAN CORPUSCULAR HGB CONC 31 g/dL (32-36); MEAN CORPUSCULAR VOLUME 87 fL (80-99); MEAN PLATELET VOLUME 9.8 fL (9.0-12.2); MONOCYTES # (AUTO) 0.8 10^3/uL (0.0-1.0); MONOCYTES % (AUTO) 10 % (0-12); NEUTROPHILS # (AUTO) 5.8 10^3/uL (1.8-7.8); NEUTROPHILS % (AUTO) 70 % (42-75); PLATELET COUNT 277 10^3/uL (130-400); WHITE BLOOD COUNT 8.3 10^3/uL (4.3-11.0)
[2020-04-20 03:44] LABS: INR 1.1 (0.8-1.4); PROTHROMBIN TIME PATIENT 14.6 SEC (12.2-14.7)
[2020-04-20 03:46] LABS: BUN/CREATININE RATIO 14; CALCIUM 7.5 MG/DL (8.5-10.1); CARBON DIOXIDE 21 MMOL/L (21-32); CHLORIDE 107 MMOL/L (98-107); CREATININE SERUM 0.73 MG/DL (0.60-1.30); GFR ESTIMATED > 60; GLUCOSE 118 MG/DL (70-105); MAGNESIUM 2.1 MG/DL (1.6-2.4); POTASSIUM 3.6 MMOL/L (3.6-5.0); SODIUM 140 MMOL/L (135-145)
[2020-04-20] MEDS: HEParin 1000 UNIT/ML (10ML VIAL) FOR BOLUS IV SCH (04:33)
[2020-04-20] MEDS: morphine INJ 4 MG/ML 1 ML (VIAL/SYRINGE) IV PRN ×2 (04:49→11:39)
--- NOTE | 2020-04-20 05:54 | Pulmonary Progress Note ---
Subjective Time Seen by a Provider: 05:52 Subjective/Events-last exam No complications noted. Sepsis Event Evaluation Height, Weight, BMI Height: '" Weight: lbs. oz. kg; 51.62 BMI Method: Focused Exam Lactate Level 04/18/20 15:15: Lactic Acid Level 2.52*H 04/18/20 18:00: Lactic Acid Level 2.23*H 04/18/20 20:28: Lactic Acid Level 1.95 Exam Exam Vital Signs Date Time Temp Pulse Resp B/P (MAP) Pulse Ox O2 Delivery O2 Flow Rate FiO2 04/20/20 05:00 86 28 135/86 (102) 92 Nasal Cannula 4.00 04/20/20 04:27 90 141/78 (99) 95 Nasal Cannula 5.00 04/20/20 03:00 89 33 153/107 (122) 95 Nasal Cannula 5.00 04/20/20 02:58 96 Nasal Cannula 5.00 04/20/20 02:00 88 157/110 (126) 96 Nasal Cannula 5.00 04/20/20 01:15 91 15 169/85 (113) 94 Nasal Cannula 5.00 04/20/20 01:00 89 04/20/20 01:00 89 164/107 (126) 94 Nasal Cannula 5.00 04/20/20 00:00 92 13 171/94 (119) 95 Nasal Cannula 5.00 04/20/20 00:00 Nasal Cannula 5.00 04/19/20 23:00 92 24 153/102 (119) 95 Nasal Cannula 5.00 04/19/20 22:00 91 34 159/94 (115) 96 Nasal Cannula 5.00 04/19/20 21:48 96 Nasal Cannula 5.00 04/19/20 21:00 89 163/83 (109) 94 Nasal Cannula 5.00 04/19/20 20:00 37.2 04/19/20 20:00 98 23 160/84 (109) 94 Nasal Cannula 5.00 04/19/20 20:00 Nasal Cannula 5.00 04/19/20 19:07 94 Nasal Cannula 5.00 04/19/20 19:00 89 04/19/20 19:00 96 21 138/87 (104) 95 Nasal Cannula 5.00 04/19/20 17:45 95 Nasal Cannula 5.00 04/19/20 17:45 92 18 135/77 (96) 92 Nasal Cannula 5.00 04/19/20 15:43 36.9 98 18 134/82 (99) 94 Nasal Cannula 3.00 04/19/20 15:41 93 Nasal Cannula 2.00 04/19/20 13:15 36.2 88 04/19/20 12:38 103 04/19/20 12:00 35.6 112 20 141/70 (93) 93 Nasal Cannula 1.50 04/19/20 10:39 90 Nasal Cannula 2.00 04/19/20 08:15 86 Room Air 04/19/20 08:00 93 Nasal Cannula 1.50 04/19/20 08:00 36.8 100 20 136/81 (99) 92 Nasal Cannula 1.50 I & O 04/20/20 07:00 Intake Total 2280 ml Output Total 0 ml Balance 2280 ml Height & Weight Height: '" Weight: lbs. oz. kg; 51.62 BMI Method: General Appearance: No Apparent Distress, WD/WN, Obese HEENT: Normal ENT Inspection, Moist Mucous Membranes Neck: Normal Inspection, Supple Respiratory: Lungs Clear (though auscultation limited by body habitus); No Crackles, No Rhonci, No Wheezing Cardiovascular: Regular Rate, Rhythm, No Murmur Capillary Refill: Less Than 3 Seconds Gastrointestinal: normal bowel sounds, non tender, soft, other (midline abd ominal incision is clean dry and intact with a small eschar in the very middle of this without drainage or secondary cellulitis changes.) Extremity: No Calf Tenderness, No Pedal Edema Neurologic/Psychiatric: Alert, Oriented x3, Normal Mood/Affect Skin: Normal Color, Warm/Dry Results Lab Laboratory Tests 04/18/20 13:00 04/19/20 04:39 04/20/20 02:58 Assessment/Plan Assessment/Plan Extensive Bilateral Pulmonary Emboli -Central TKN -Hep gtt Continue Lovenox Dopplers pending COVID PCR negative Echo pending elevated troponin Likely due to PE Cardiology consulted Telemetry Spinal stenosis Continue home gabapentin DVT ppx: Lovenox SAAD AMBRIZ DO Apr 20, 2020 05:54
[2020-04-20] MEDS ORDERED: NS IV 1000 ML 0 ML ONE (07:23)
[2020-04-20] MEDS ORDERED: LIDOCAINE 1% INJ 20 ML 20 ML VIAL ONE (07:23)
[2020-04-20] MEDS ORDERED: HEParin (CATH LAB) 1,000 ML IV ONE ×2 (07:23)
--- NOTE | 2020-04-20 07:26 | NUR ---
04/19/202117 THIS RN CONTACTED DR BAIRES TO CLARIFY ORDERS REGARDING HEPARIN DOSING AND PTT SCHEDULING. INSTRUCTED TO "FOLLOW THE PROTOCOL." TITRATED DRIP ACCORDINGLY. 2943 HEPARIN INCREASED FROM 300 UNITS/HR TO 450 UNITS/HR.
[2020-04-20] MEDS ORDERED: MIDAZOLAM 5 MG/5 ML (VERSED) VIAL ONE (07:53)
[2020-04-20] MEDS ORDERED: fentaNYL INJECTION 100 MCG/2 ML AMP ONE (07:54)
[2020-04-20] MEDS: NS IV 1000 ML 1,000 ML IV SCH (08:01)
--- NOTE | 2020-04-20 09:13 | Cardiac Procedure Note-CS/ASA ---
Pre-Procedure Note Pre-Op Procedure Note H&P Reviewed The H&P was reviewed, patient examined and no changes noted. Date H&P Reviewed: Apr 20, 2020 Time H&P Reviewed: 08:00 Conscious Sedation Pre-Proced Time 08:00 ASA Score 3 For ASA 3 and 4: Consider anesthesia and medical clearance. Also, for patients with a history of failed moderate sedation consider anesthesia. Airway Lungs Heart ASA score ASA 1: a normal healthy patient ASA 2: a patient with a mild systemic disease (mid diabetes, controlled hypertension, obesity ASA 3: a patient with a severe systemic disease that limits activity (angina, COPD, prior Myocardial infarction) ASA 4: a patient with an incapacitating disease that is a constant threat to life (CHF, renal failure) ASA 5: a moribund patient not expected to survive 24 hrs. (ruptured aneurysm) ASA 6: a declared brain- patient whose organs are being harvested. For emergent operations, add the letter E after the classification Mallampati Classification Grade 1 Sedation Plan Analgesia, Amnesia, Plan communicated to team members, Discussed options with patient/fam, Discussed risks with patient/fam The patient is an appropriate candidate to undergo the planned procedure, sedation, and anesthesia. The patient immediately re-assessed prior to indication. Keisha BAIRES MD Apr 20, 2020 09:13
--- NOTE | 2020-04-20 09:14 | Coronary Angiography Report ---
Peripheral Angiography Pulmonary angiography and right heart catheterization DATE OF SERVICE: 04/20/20 PERFORMING INTERVENTIONALIST: Dr. Lucina Gomez INDICATION: Saddle pulmonary embolism with RV strain. Overnight thrombolytic infusion. PREOPERATIVE INDICATION: Saddle pulmonary embolism with RV strain. Overnight thrombolytic infusion. POSTOPERATIVE DIAGNOSIS: Saddle pulmonary embolism with RV strain. HISTORY: This is a 54-year-old gentleman with morbid obesity and recent small bowel obstruction requiring surgery. Shortness of breath for the last one week or more. CT scan showed saddle embolus with huge burden of thrombus in bilateral pulmonary arteries. RV strain was noted. He was brought to the lab yesterday and received catheter directed thrombolysis. We left the pigtail in the MPA and continued overnight thrombolytic infusion. PROCEDURE PERFORMED: 1. Bilateral nonselective pulmonary angiogram. 2. Right heart catheterization. 3. Removal of pigtail catheter under fluoroscopy. SPECIMENS: None. ANESTHESIA: Conscious sedation. BLOOD LOSS: 20 mL. COMPLICATIONS: None. CONTRAST USED: 35 ml. FLUOROSCOPY DOSE: 165 Mgy. FLUOROSCOPY TIME: 1.9 minutes. ANTICOAGULATION: IV heparin DESCRIPTION OF PROCEDURE: The patient was brought to the liaison inspection laboratory assistant after informed consent was taken. All the risks and complications were explained in detail. The patient was draped and prepped in the usual sterile fashion. Right femoral area was prepped with Betadine. Under fluoroscopy the pigtail catheter which was in the main pulmonary artery was taken out. The 5 Gabonese sheath was exchanged for a new 5 Gabonese sheath. We then went in with a pigtail catheter which was placed in the main pulmonary artery. Nonselective bilateral pulmonary angiogram was done which did not reveal any proximal filling defects. Right heart catheterization was done for persistent shortness of breath. Pulmonary artery pressure 60/26 mmHg, RV pressure 50/15 mmHg. RVEDP 20 mmHg, right atrial pressure 15 mmHg. CONCLUSION: Saddle pulmonary embolism, status post tenecteplase infusion overnight. Continue Eliquis therapy for at least 6 months. Lucina Gomez MD, FACP, FACC, [facility] Vascular Medicine and Endovascular Interventions Keisha GOMEZ MD Apr 20, 2020 09:14
[2020-04-20] MEDS ORDERED: PATIENT MAY USE OWN MEDS, ALL PO SCH (09:15)
[2020-04-20] MEDS ORDERED: NS IV 1000 ML 1,000 ML IV SCH (09:15)
[2020-04-20] MEDS: ASPIRIN 81 MG CHEW (CHILDREN'S ASA) PO SCH (10:21)
[2020-04-20] MEDS: APIXABAN 5 MG (ELIQUIS) TABLET PO SCH ×2 (10:21→21:45)
[2020-04-20] MEDS: GABAPENTIN 300 MG (NEURONTIN) CAP PO SCH ×3 (10:21→21:45)
--- NOTE | 2020-04-20 12:23 | Progress Note - Hospitalist ---
Subjective HPI/CC On Admission Date Seen by Provider: Apr 20, 2020 Time Seen by Provider: 12:17 Pt is a 54yoCM with a PMH of spinal stenosis and recent SBO s/p resection at [facility] in [place] who presented to the ER due to SOB and fever. He states that he had been doing well post op but then developed a fever over the past couple of d ays with SOB. He denies any sick contacts other than being in the hospital. He denies any abnormal leg swelling. He states his SOB is worse when he attempts to take a deep breath and he feels like he can only take half as deep of a breath as normal. Subjective/Events-last exam Pt reports doing well. Just got back from [facility]. No complaints. Focused Exam Lactate Level 04/18/20 15:15: Lactic Acid Level 2.52*H 04/18/20 18:00: Lactic Acid Level 2.23*H 04/18/20 20:28: Lactic Acid Level 1.95 Objective Exam Vital Signs Vital Signs Date Time Temp Pulse Resp B/P (MAP) Pulse Ox O2 Delivery O2 Flow Rate FiO2 04/20/20 11:29 Nasal Cannula 4.00 04/20/20 09:49 95 04/20/20 08:00 36.1 04/20/20 06:50 85 04/20/20 06:00 21 132/93 (106) Capillary Refill : Less Than 3 Seconds General Appearance: No Apparent Distress, Obese Respiratory: Lungs Clear, No Respiratory Distress Cardiovascular: Regular Rate, Rhythm, No Murmur Gastrointestinal: Normal Bowel Sounds, Non Tender, Soft Extremity: No Calf Tenderness, No Pedal Edema Neurologic/Psychiatric: Alert, Oriented x3 Results/Procedures Lab Laboratory Tests 04/20/20 02:58 Patient resulted labs reviewed. Imaging: Reviewed Imaging Report Assessment/Plan Assessment and Plan Assess & Plan/Chief Complaint Extensive Bilateral Pulmonary Emboli with saddle embolus Went to [facility] yesterday for catheter guided thrombolytics LLE DVT Echo showed right heart strain COVID PCR negative Returned to [facility] today elevated troponin Likely due to PE Cardiology consulted, appreciate recs Telemetry trend Spinal stenosis Continue home gabapentin DVT ppx: Lovenox Diagnosis/Problems Diagnosis/Problems (1) Elevated d-dimer (2) Hypoxia (3) Morbid obesity (4) Person under investigation for COVID-19 Status: Acute (5) Dyspnea Status: Acute (6) NSTEMI (non-ST elevated myocardial infarction) Status: Acute (7) Bilateral pulmonary embolism Status: Acute (8) Saddle pulmonary embolus Qualifiers: Chronicity: acute Acute cor pulmonale presence: unspecified Qualified Codes: I26.92 - Saddle embolus of pulmonary artery without acute cor pulmonale Clinical Quality Measures DVT/VTE Risk/Contraindication: Risk Factor Score Per Nursin RFS Level Per Nursing on Admit: 4+=Very High NATALY DANIELSON MD Apr 20, 2020 12:23
--- NOTE | 2020-04-20 12:30 | NUR ---
THIS NURSE SPOKE WITH DR DANIELSON AND DR BAIRES, PT MAY TRANSFER TO FOURTH FLOOR AFTER BEDREST IS COMPLETE. HOUSE SUP NOTIFIED.
--- NOTE | 2020-04-20 14:10 | NUR ---
RD ASSESSMENT PMHx: SBO; morbid obesity PT INTERACTION: Pt was awake and pleasant during nutrition assessment. Pt states unsure of current appetite. "I'm still feeling the effects of morphine right now, so I'm not quite sure of my current appetite." Pt states appetite at home is normally good. Note avg PO intake 66% x3meal, per chart review. Pt states following a regular diet at home, and has no issues with chewing/swallowing food. Pt states no recent issues with nausea, vomiting, or constipation. Pt states some recent issues with diarrhea, and that his last BM was a couple of days ago. Note pt not currently on bowel regimen per chart review. Pt states recent wt loss, but states it's "a lot of weight lost fast." Note unable to determine recent wt hx, per chart review. ABNORMAL NUTRITION-RELATED LAB VALUES LOW: Ca 7.5 HIGH: glu 118 Est. kcal needs: 2425 kcal | 25 kcal/kg IBW, based on IBW of 97.3 kg (214#) Est. Pro needs: 97 g Pro | 1.0 g Pro/kg IBW PES STATEMENT: Inadequate oral intake (NI-2.1) related to loss of appetite | diarrhea as evidenced by pt interview | avg PO intake 66% x3meal INTERVENTION: Continue with current diet order of CHO 60g/m 1snack diet. Pt may benefit from nutrition supplementation if PO intake declines. Will continue to follow and reassess as pt needs, intake, and status change. Sharlene Gay, MS, RD, LD
--- NOTE | 2020-04-20 17:20 | Cardiology Progress Note ---
Cardiology SOAP Progress Note Subjective: Mild improvement in shortness of breath. Objective: I&O/Vital Signs 04/21/20 04/21/20 04/21/20 04/21/20 06:46 07:08 07:45 08:23 Temp 36.4 Pulse 93 92 Resp 20 B/P (MAP) 136/77 (96) Pulse Ox 90 94 O2 Delivery Vapotherm Vapotherm Vapotherm O2 Flow Rate 20.00 20.00 20.00 55.00 FiO2 55 55 04/21/20 04/21/20 04/21/20 10:20 11:00 14:18 Temp 36.6 Pulse 95 Resp 20 B/P (MAP) 138/86 (103) Pulse Ox 92 93 92 O2 Delivery Nasal Cannula Vapotherm Nasal Cannula O2 Flow Rate 4.00 20.00 5.00 55.00 04/21/20 00:00 Intake Total 2190 ml Output Total 1025 ml Balance 1165 ml Constitutional: AAO x 3 Respiratory: chest is bilaterally symmetric, lungs clear to auscultation Cardiovascular: regular rate-rhythm, S1 and S2 Gastrointestional: soft, distended, audible bowel sounds Extremities: normal range of motion, non-tender, normal inspection Neurologic/Psychiatric: no motor/sensory deficits, alert, normal mood/affect, oriented x 3 Results/Procedures: Labs Laboratory Tests 04/21/20 12:35: Sodium Level 140, Potassium Level 3.5L, Chloride Level 106, Carbon Dioxide Level 22, Anion Gap 12, Blood Urea Nitrogen 9, Creatinine 0.81, Estimat Glomerular Filtration Rate > 60, BUN/Creatinine Ratio 11, Glucose Level 137H, Calcium Level 8.2L Microbiology 04/19/20 MRSA Screen - Final, Complete MRSA not isolated 04/18/20 Blood Culture - Preliminary, Resulted No growth A/P: Assessment/Dx: Acute respiratory failure, saddle pulmonary embolism, Acute RV dysfunction, RV strain. Morbid obesity, Recent abdominal surgery, Positive D dimer, Positive cardiac enzymes. Left lower extremity DVT. Plan: Acute respiratory failure, respiratory distress. Patient was requiring 4-5 L of oxygen, oxygen saturation in the low 90s. Unclear etiology. Positive D dimer, recent abdominal surgery. CT angiography of the chest showed saddle pulmonary embolism with large pulmonary embolism bilaterally. Urgent echocardiogram showed D-shaped septum with RV dysfunction and pulmonary hypertension. Patient was in respiratory distress. I discussed at length with the primary team as well as the patient and recommended catheter directed thrombolysis. Informed consent was taken including 1 percent risk of due to intracranial hemorrhage. Patient accepted all risks and will like to proceed with pulmonary angiogram, possible intervention, catheter directed thrombolysis was performed on 04/19/2020. Pulmonary angiography was done. 5 mg of tenecteplase was injected in right pulmonary artery and 5 mg of tenecteplase was injected in the left pulmonary artery. A pigtail catheter was left in the MPA and tenecteplase infusion was continued overnight. Patient will be brought back to the cardiac catheterization laboratory for removal of pigtail catheter as well as pulmonary angiogram and measurement of right heart pressures. DC tenecteplase infusion, heparin. Start Eliquis 10 mg twice a day for 7 days. And then 5 mg twice a day for 6 months. Positive cardiac enzymes with shortness of breath. Likely secondary to large pulmonary embolism. Positive cardiac enzymes in a patient with large pulmonary embolism is a poor prognostic sign. Aggressive therapy is recommended. Morbid obesity Recent abdominal surgery, deferred to the primary team. Thank you for your consultation. Please call me if you have any questions. Lucina Gomez MD, FACP, FACC, FSCAI, FHRS, CCDS Interventional Cardiology Cardiac Electrophysiology Vascular Medicine and Endovascular Interventions Focused Exam Lactate Level 04/18/20 18:00: Lactic Acid Level 2.23*H 04/18/20 20:28: Lactic Acid Level 1.95 Keisha GOMEZ MD Apr 20, 2020 17:20
--- NOTE | 2020-04-20 23:00 | NUR ---
pt complains of SOA, requires 8L to keep O2 sat > 90%. RT suggests vapotherm at this time, Dr. Paz notified of all the above, agrees with putting pt on vapotherm. will continue to monitor
[2020-04-21] VITALS: BP 120/78
[2020-04-21] MEDS: RT-ALBUTEROL INHALER HFA (VENTOLIN HFA) 18 GM IH SCH ×6 (02:18→21:55)
[2020-04-21 04:00] VITALS: BP 143/77
[2020-04-21 07:45] VITALS: BP 136/77
[2020-04-21] MEDS: ASPIRIN 81 MG CHEW (CHILDREN'S ASA) PO SCH (08:17)
[2020-04-21] MEDS: GABAPENTIN 300 MG (NEURONTIN) CAP PO SCH ×3 (08:17→20:12)
[2020-04-21] MEDS: APIXABAN 5 MG (ELIQUIS) TABLET PO SCH ×2 (08:18→20:12)
--- NOTE | 2020-04-21 09:33 | Progress Note - Hospitalist ---
Subjective HPI/CC On Admission Date Seen by Provider: Apr 21, 2020 Time Seen by Provider: 09:31 Pt is a 54yoCM with a PMH of spinal stenosis and recent SBO s/p resection at [facility] in [place] who presented to the ER due to SOB and fever. He states that he had been doing well post op but then developed a fever over the past couple of days with SOB. He denies any sick contacts other than being in the hospital. He denies any abnormal leg swelling. He states his SOB is worse when he attempts to take a deep breath and he feels like he can only take half as deep of a breath a s normal. Subjective/Events-last exam Pt reports feeling better today. Had worsening shortness of breath over night and needed Vapotherm. Had taken vapotherm off while I was at bedside and sats dropped to 87. I placed him on 3lpm NC and he increased to 90%. Focused Exam Lactate Level 04/18/20 15:15: Lactic Acid Level 2.52*H 04/18/20 18:00: Lactic Acid Level 2.23*H 04/18/20 20:28: Lactic Acid Level 1.95 Objective Exam Vital Signs Vital Signs Date Time Temp Pulse Resp B/P (MAP) Pulse Ox O2 Delivery O2 Flow Rate FiO2 04/21/20 08:23 Vapotherm 20.00 55 04/21/20 07:45 36.4 92 20 136/77 (96) 94 Capillary Refill : Less Than 3 Seconds General Appearance: No Apparent Distress, Obese Respiratory: Lungs Clear, No Accessory Muscle Use Cardiovascular: Regular Rate, Rhythm, No Murmur Gastrointestinal: Normal Bowel Sounds, Non Tender, Soft Neurologic/Psychiatric: Alert, Oriented x3 Results/Procedures Lab Patient resulted labs reviewed. Imaging: Reviewed Imaging Report Assessment/Plan Assessment and Plan Assess & Plan/Chief Complaint Extensive Bilateral Pulmonary Emboli with saddle embolus s/p catheter guided thrombolytics LLE DVT COVID PCR negative Returned to [facility] yesterday Continue Eliquis I titrated patient's oxygen to nasal cannula 3lpm Discussed with Dr Plummer as he like has obesity hypoventilation and JOSEPH as well, may need home vent to mask elevated troponin Likely due to PE Cardiology consulted, appreciate recs Telemetry trend Spinal stenosis Continue home gabapentin DVT ppx: Lovenox Diagnosis/Problems Diagnosis/Problems (1) Elevated d-dimer (2) Hypoxia (3) Morbid obesity (4) Person under investigation for COVID-19 Status: Acute (5) Dyspnea Status: Acute (6) NSTEMI (non-ST elevated myocardial infarction) Status: Acute (7) Bilateral pulmonary embolism Status: Acute (8) Saddle pulmonary embolus Qualifiers: Chronicity: acute Acute cor pulmonale presence: unspecified Qualified Codes: I26.92 - Saddle embolus of pulmonary artery without acute cor pulmonale Clinical Quality Measures DVT/VTE Risk/Contraindication: Risk Factor Score Per Nursin RFS Level Per Nursing on Admit: 4+=Very High NATALY DANIELSON MD Apr 21, 2020 09:33
[2020-04-21 11:00] VITALS: BP 138/86
--- NOTE | 2020-04-21 11:37 | NUR ---
CM/SS visited with patient for discharge planning. The patient was lying in bed watching tv. He reports that he is feeling better today and is asking when he may be able to discharge. CM/SS informed the patient on [employer] cost savings. CM/SS provided him with a 30 day free card and a 10 dollar co-pay card. He verbalized understanding. Equipment: Patient does have a front wheeled walker but it is second hand. He does not wear oxygen at baseline but may discharge with it. CM/SS will follow with patient to assist with set up if needed.
[2020-04-21 12:56] LABS: BUN/CREATININE RATIO 11; CALCIUM 8.2 MG/DL (8.5-10.1); CARBON DIOXIDE 22 MMOL/L (21-32); CHLORIDE 106 MMOL/L (98-107); CREATININE SERUM 0.81 MG/DL (0.60-1.30); GFR ESTIMATED > 60; GLUCOSE 137 MG/DL (70-105); POTASSIUM 3.5 MMOL/L (3.6-5.0); SODIUM 140 MMOL/L (135-145)
[2020-04-21] MEDS ORDERED: NS 100 ML (IVPB) BAG IV ONE (13:45)
[2020-04-21] MEDS ORDERED: IOHEXOL 350 MG/ML 150 ML (OMNIPAQUE 350) VIAL IV ONE (13:45)
[2020-04-21] MEDS ORDERED: CATHETER FLUSH 10 ML SYR IV PRN (13:45)
[2020-04-21] MEDS ORDERED: HOLD METFORMIN - RECEIVED CONTRAST 20 ML VIAL IV SCH (13:45)
--- NOTE | 2020-04-21 15:03 | Diagnostic Imaging Report ---
EXAMINATION: CT angiography of the chest. TECHNIQUE: Contrast enhanced thin section helical images were obtained through the chest with intravenous contrast timed for the optimal opacification of the arterial structures per CTA protocol. Post-processing, reconstructions and interpretation of angiographic images of the vessels was performed. 3D MIP reconstructions were performed and reviewed. All CT scans use one or more of the following dose optimizing techniques: automated exposure control, MA and/or KvP adjustment based on a patient size and exam type, or iterative reconstruction. HISTORY: Pulmonary embolism. COMPARISON: 04/18/2020. FINDINGS: Again seen are pulmonary emboli involving all lobar vessels. The most proximal emboli extending across the bifurcation of pulmonary artery is no longer present. The degree of emboli in the left lower lobe are improved. There is decreased occlusive emboli in the right lower lobe as well. Left upper lobe emboli improved as well as right upper lobe. There is persistent dilation of the right ventricle flattening of the septum. There is a posterior segment right upper lobe infarct which is new from prior exam. There is an evolving infarct in the right lower lobe. No edema. There is a small right pleural effusion. No pneumothorax. No suspicious nodules. There is no axillary or supraclavicular lymphadenopathy. There is no mediastinal lymphadenopathy. Heart size is normal. There are no coronary artery calcifications. No pericardial effusion. Aorta is normal in caliber. Limited views of the upper abdomen are unremarkable. There are no suspicious osseous lesions. IMPRESSION: 1. Persistent fairly extensive pulmonary emboli but slightly improved from prior exam. There is continued dilation of the right heart with flattening of the septum consistent with right heart strain. 2. New right upper lobe infarct and evolving right lower lobe infarct. Dictated by: Dictated on workstation # [id number]
--- NOTE | 2020-04-21 15:45 | NUR ---
Pastoral care visit.
--- NOTE | 2020-04-21 16:23 | Cardiology Progress Note ---
Cardiology SOAP Progress Note Subjective: Significantly improved shortness of breath. Not in respiratory distress. When I went to the patient's room he was not even wearing nasal cannula oxygen. He seemed very comfortable. Objective: I&O/Vital Signs 04/21/20 04/21/20 04/21/20 04/21/20 06:46 07:08 07:45 08:23 Temp 36.4 Pulse 93 92 Resp 20 B/P (MAP) 136/77 (96) Pulse Ox 90 94 O2 Delivery Vapotherm Vapotherm Vapotherm O2 Flow Rate 20.00 20.00 20.00 55.00 FiO2 55 55 04/21/20 04/21/20 04/21/20 10:20 11:00 14:18 Temp 36.6 Pulse 95 Resp 20 B/P (MAP) 138/86 (103) Pulse Ox 92 93 92 O2 Delivery Nasal Cannula Vapotherm Nasal Cannula O2 Flow Rate 4.00 20.00 5.00 55.00 04/21/20 00:00 Intake Total 2190 ml Output Total 1025 ml Balance 1165 ml Constitutional: AAO x 3 Respiratory: chest is bilaterally symmetric, lungs clear to auscultation Cardiovascular: regular rate-rhythm, S1 and S2 Gastrointestional: soft, distended, audible bowel sounds Extremities: normal range of motion, non-tender, normal inspection Neurologic/Psychiatric: no motor/sensory deficits, alert, normal mood/affect, oriented x 3 Skin: normal color, warm/dry Results/Procedures: Labs Laboratory Tests 04/21/20 12:35: Sodium Level 140, Potassium Level 3.5L, Chloride Level 106, Carbon Dioxide Level 22, Anion Gap 12, Blood Urea Nitrogen 9, Creatinine 0.81, Estimat Glomerular Filtration Rate > 60, BUN/Creatinine Ratio 11, Glucose Level 137H, Calcium Level 8.2L Microbiology 04/19/20 MRSA Screen - Final, Complete MRSA not isolated 04/18/20 Blood Culture - Preliminary, Resulted No growth A/P: Assessment/Dx: Acute respiratory failure, saddle pulmonary embolism, Acute RV dysfunction, RV strain. Morbid obesity, Recent abdominal surgery, Positive D dimer, Positive cardiac enzymes. Left lower extremity DVT. Plan: Acute respiratory failure, respiratory distress. Positive D dimer, recent abdominal surgery. CT angiography of the chest showed saddle pulmonary embolism with large pulmonary embolism bilaterally. Urgent echocardiogram showed D- shaped septum with RV dysfunction and pulmonary hypertension. Significantly improved pulmonary condition. catheter directed thrombolysis was performed on 04/19/2020. Pulmonary angiography was done. 5 mg of tenecteplase was injected in right pulmonary bel ry and 5 mg of tenecteplase was injected in the left pulmonary artery. A pigtail catheter was left in the MPA and tenecteplase infusion was continued overnight. Pigtail catheter removed on 04/20/2020. Continue Eliquis 10 mg twice a day for 7 days. And then 5 mg twice a day for 6 months. Positive cardiac enzymes with shortness of breath. Likely secondary to large pulmonary embolism. Positive cardiac enzymes in a patient with large pulmonary embolism is a poor prognostic sign. Aggressive therapy is recommended. Morbid obesity Recent abdominal surgery, deferred to the primary team. Thank you for your consultation. Please call me if you have any questions. Lucina Gomez MD, FACP, FACC, FSCAI, FHRS, CCDS Interventional Cardiology Cardiac Electrophysiology Vascular Medicine and Endovascular Interventions Focused Exam Lactate Level 04/18/20 18:00: Lactic Acid Level 2.23*H 04/18/20 20:28: Lactic Acid Level 1.95 Keisha GOMEZ MD Apr 21, 2020 16:23
[2020-04-21 17:00] VITALS: BP 147/72
[2020-04-21 20:11] VITALS: BP 128/75
[2020-04-22] VITALS (8 sets, daily range): BP systolic 106–175; BP diastolic 54–97
--- NOTE | 2020-04-22 01:13 | NUR ---
PT B/P 175/97 AUTOMATICALLY, AND 180/[address] BAIRES NOTIFIED, NEW ORDERS RECEIVED, SEE ORDER HISTORY.
[2020-04-22] MEDS ORDERED: amLODIPine 5 MG (NORVASC) TAB PO PRN (01:15)
[2020-04-22] MEDS ORDERED: lisINopril 20 MG (PRINIVIL) TABLET PO ONE (01:15)
[2020-04-22] MEDS ORDERED: lisINopril 20 MG (PRINIVIL) TABLET ONE (01:16)
[2020-04-22] MEDS: RT-ALBUTEROL INHALER HFA (VENTOLIN HFA) 18 GM IH SCH ×6 (01:48→21:45)
--- NOTE | 2020-04-22 07:21 | NUR ---
PT COUGHED UP BLOOD, DENIES CHEST PAIN, SOA. VITALS STABLE. PT REPORTS FEELING BETTER AFTER THE COUGHING. DR DANIELSON AND DR AMBRIZ NOTIFIED.
--- NOTE | 2020-04-22 08:08 | Pulmonary Progress Note ---
Subjective Date Seen by a Provider: Apr 21, 2020 (late entry) Time Seen by a Provider: 08:05 Subjective/Events-last exam no complications noted. Sepsis Event Evaluation Height, Weight, BMI Height: '" Weight: lbs. oz. kg; 51.62 BMI Method: Exam Exam Vital Signs Date Time Temp Pulse Resp B/P (MAP) Pulse Ox O2 Delivery O2 Flow Rate FiO2 04/22/20 07:01 94 Nasal Cannula 5.00 04/22/20 07:00 100 04/22/20 05:35 101 164/92 (116) 04/22/20 04:00 37.4 102 24 134/77 (96) 91 Nasal Cannula 5.00 04/22/20 01:48 95 Nasal Cannula 5.00 04/22/20 01:00 90 04/22/20 00:00 37.7 92 22 175/97 (123) 91 Nasal Cannula 5.00 04/21/20 21:56 93 Nasal Cannula 5.00 04/21/20 20:11 37.1 62 24 128/75 (92) 94 Nasal Cannula 5.00 04/21/20 19:50 Room Air 5.00 04/21/20 19:00 100 04/21/20 18:53 93 Nasal Cannula 5.00 04/21/20 17:00 36.8 92 22 147/72 (97) 92 Nasal Cannula 5.00 04/21/20 14:18 92 Nasal Cannula 5.00 04/21/20 11:00 36.6 95 20 138/86 (103) 93 Vapotherm 20.00 55.00 04/21/20 10:20 92 Nasal Cannula 4.00 04/21/20 08:23 Vapotherm 20.00 55 I & O 04/22/20 07:00 Intake Total 2110 ml Output Total 1450 ml Balance 660 ml Height & Weight Height: '" Weight: lbs. oz. kg; 51.62 BMI Method: General Appearance: No Apparent Distress, Obese HEENT: Normal ENT Inspection, Moist Mucous Membranes Neck: Normal Inspection, Supple Respiratory: Lungs Clear, No Accessory Muscle Use Cardiovascular: Regular Rate, Rhythm, No Murmur Capillary Refill: Less Than 3 Seconds Gastrointestinal: normal bowel sounds, non tender, soft, other (midline abdominal incision is clean dry and intact with a small eschar in the very middle of this without drainage or secondary cellulitis changes.) Extremity: No Calf Tenderness, No Pedal Edema Neurologic/Psychiatric: Alert, Oriented x3 Skin: Normal Color, Warm/Dry Results Lab Laboratory Tests 04/21/20 12:35 Assessment/Plan Assessment/Plan Extensive Bilateral Pulmonary Emboli -S/p Central TKN -Continue Eliquis Dopplers pending COVID PCR negative Morbid obesity with probable OHS -Check ABG to see if pt will qualify for home vent to mask Spinal stenosis DVT ppx: SAAD Joy DO Apr 22, 2020 08:08
--- NOTE | 2020-04-22 08:11 | Pulmonary Progress Note ---
Subjective Time Seen by a Provider: 08:10 Subjective/Events-last exam Pt coughed up small amount of hemoptysis Sepsis Event Evaluation Height, Weight, BMI Height: '" Weight: lbs. oz. kg; 51.62 BMI Method: Exam Exam Vital Signs Date Time Temp Pulse Resp B/P (MAP) Pulse Ox O2 Delivery O2 Flow Rate FiO2 04/22/20 07:01 94 Nasal Cannula 5.00 04/22/20 07:00 100 04/22/20 05:35 101 164/92 (116) 04/22/20 04:00 37.4 102 24 134/77 (96) 91 Nasal Cannula 5.00 04/22/20 01:48 95 Nasal Cannula 5.00 04/22/20 01:00 90 04/22/20 00:00 37.7 92 22 175/97 (123) 91 Nasal Cannula 5.00 04/21/20 21:56 93 Nasal Cannula 5.00 04/21/20 20:11 37.1 62 24 128/75 (92) 94 Nasal Cannula 5.00 04/21/20 19:50 Room Air 5.00 04/21/20 19:00 100 04/21/20 18:53 93 Nasal Cannula 5.00 04/21/20 17:00 36.8 92 22 147/72 (97) 92 Nasal Cannula 5.00 04/21/20 14:18 92 Nasal Cannula 5.00 04/21/20 11:00 36.6 95 20 138/86 (103) 93 Vapotherm 20.00 55.00 04/21/20 10:20 92 Nasal Cannula 4.00 04/21/20 08:23 Vapotherm 20.00 55 I & O 04/22/20 07:00 Intake Total 2110 ml Output Total 1450 ml Balance 660 ml Height & Weight Height: '" Weight: lbs. oz. kg; 51.62 BMI Method: General Appearance: No Apparent Distress, Obese HEENT: Normal ENT Inspection, Moist Mucous Membranes Neck: Normal Inspection, Supple Respiratory: Lungs Clear, No Accessory Muscle Use Cardiovascular: Regular Rate, Rhythm, No Murmur Capillary Refill: Less Than 3 Seconds Gastrointestinal: normal bowel sounds, non tender, soft, other (midline abdominal incision is clean dry and intact with a small eschar in the very middle of this without drainage or secondary cellulitis changes.) Extremity: No Calf Tenderness, No Pedal Edema Neurologic/Psychiatric: Alert, Oriented x3 Skin: Normal Color, Warm/Dry Results Lab Laboratory Tests 04/21/20 12:35 Assessment/Plan Assessment/Plan Extensive Bilateral Pulmonary Emboli -S/p Central TKN -Continue Eliquis Dopplers pending COVID PCR negative Morbid obesity with probable OHS -Check ABG to see if pt will qualify for home vent to mask Hemoptysis -Montior Spinal stenosis DVT ppx: SAAD Joy DO Apr 22, 2020 08:11
[2020-04-22] MEDS: GABAPENTIN 300 MG (NEURONTIN) CAP PO SCH ×3 (09:33→20:35)
[2020-04-22] MEDS: ASPIRIN 81 MG CHEW (CHILDREN'S ASA) PO SCH (09:33)
[2020-04-22] MEDS: APIXABAN 5 MG (ELIQUIS) TABLET PO SCH ×2 (09:33→20:35)
--- NOTE | 2020-04-22 09:34 | Progress Note - Hospitalist ---
Subjective HPI/CC On Admission Date Seen by Provider: Apr 22, 2020 Time Seen by Provider: 09:27 Pt is a 54yoCM with a PMH of spinal stenosis and recent SBO s/p resection at [facility] in [place] who presented to the ER due to SOB and fever. He states that he had been doing well post op but then developed a fever over the past couple of d ays with SOB. He denies any sick contacts other than being in the hospital. He denies any abnormal leg swelling. He states his SOB is worse when he attempts to take a deep breath and he feels like he can only take half as deep of a breath as normal. Subjective/Events-last exam Pt reports feeling ok today but had some hemoptysis overnight. Breathing improved after that. Objective Exam Vital Signs Vital Signs Date Time Temp Pulse Resp B/P (MAP) Pulse Ox O2 Delivery O2 Flow Rate FiO2 04/22/20 07:01 94 Nasal Cannula 5.00 04/22/20 07:00 100 04/22/20 05:35 164/92 (116) 04/22/20 04:00 37.4 24 04/21/20 08:23 55 Capillary Refill : Less Than 3 Seconds General Appearance: No Apparent Distress, WD/WN, Obese Respiratory: Lungs Clear, No Accessory Muscle Use, Other (on 4lpm nasal cannula) Cardiovascular: Regular Rate, Rhythm, No Murmur Neurologic/Psychiatric: Alert, Oriented x3, Normal Mood/Affect Results/Procedures Lab Laboratory Tests 04/21/20 12:35 Patient resulted labs reviewed. Imaging: Reviewed Imaging Report Assessment/Plan Assessment and Plan Assess & Plan/Chief Complaint Extensive Bilateral Pulmonary Emboli with saddle embolus Hemoptysis s/p catheter guided thrombolytics LLE DVT COVID PCR negative Continue Eliquis despite hemoptysis for now as risks outweight benefits Discussed with Dr Plummer and we will monitor over the weekend Discussed with Dr Plummer as he like has obesity hypoventilation and JOSEPH as well, may need home vent to mask elevated troponin Likely due to PE Cardiology consulted, appreciate recs Telemetry trend Spinal stenosis Continue home gabapentin DVT ppx: Lovenox Diagnosis/Problems Diagnosis/Problems (1) Elevated d-dimer (2) Hypoxia (3) Morbid obesity (4) Person under investigation for COVID-19 Status: Acute (5) Dyspnea Status: Acute Qualifiers: Dyspnea type: acute respiratory distress Qualified Codes: R06.03 - Acute respiratory distress (6) NSTEMI (non-ST elevated myocardial infarction) Status: Acute (7) Bilateral pulmonary embolism Status: Acute (8) Saddle pulmonary embolus Qualifiers: Chronicity: acute Acute cor pulmonale presence: unspecified Qualified Codes: I26.92 - Saddle embolus of pulmonary artery without acute cor pulmonale Clinical Quality Measures DVT/VTE Risk/Contraindication: Risk Factor Score Per Nursin RFS Level Per Nursing on Admit: 4+=Very High NATALY DANIELSON MD Apr 22, 2020 09:34
[2020-04-22 10:27] LABS: ABG BASE EXCESS 0.9 MMOL/L (-2.5-2.5); ABG OXYGEN SATURATION 95 % (94-100); ABG PCO2 30 MMHG (35-45); ABG PH 7.51 (7.37-7.43); ABG PO2 77 MMHG (79-93); ABG TCO2 24.6 MMOL/L (21.0-31.0)
[2020-04-22 10:29] LABS: ALLENS TEST YES-POS; INSPIRED O2 4; PATIENT TEMP 37.6; VENTILATOR NO
[2020-04-22] MEDS: ACETAMINOPHEN 500 MG TAB (TYLENOL) PO PRN ×2 (11:14→17:53)
[2020-04-22] MEDS ORDERED: PIPERACILLIN/TAZO 4.5 GM/NS 100 ML IV NR ×2 (13:30)
--- NOTE | 2020-04-22 14:13 | NUR ---
CM/SS follow up. The patient reports that he is doing okay but had a rough night. He states that he started coughing around 3 a.m. and coughed up blood clots . The patient states he is hoping he can get some sleep soon. CM/SS discussed that patent would be admitted through the weekend and is being assessed for a vent to mask. He verbalized understanding. Patient denies any further questions or concerns at this time. CM/SS will continue to follow.
--- NOTE | 2020-04-22 15:05 | Cardiology Progress Note ---
Cardiology SOAP Progress Note Subjective: Continues to have mild shortness of breath. Objective: I&O/Vital Signs 04/22/20 04/22/20 04/22/20 04/22/20 04:00 05:35 07:00 07:01 Temp 37.4 Pulse 102 101 100 Resp 24 B/P (MAP) 134/77 (96) 164/92 (116) Pulse Ox 91 94 O2 Delivery Nasal Cannula Nasal Cannula O2 Flow Rate 5.00 5.00 04/22/20 04/22/20 04/22/20 04/22/20 08:00 09:37 10:21 11:14 Temp 37.6 38.0 Pulse 105 Resp 22 B/P (MAP) 137/67 (90) Pulse Ox 92 91 O2 Delivery Nasal Cannula Nasal Cannula Nasal Cannula O2 Flow Rate 3.00 4.00 4.00 04/22/20 04/22/20 04/22/20 11:45 12:00 14:55 Temp 37.8 38.0 Pulse 101 Resp 24 B/P (MAP) 136/63 (87) Pulse Ox 94 93 O2 Delivery Nasal Cannula Nasal Cannula O2 Flow Rate 3.00 4.00 04/21/20 23:59 Intake Total 1810 ml Output Total 1450 ml Balance 360 ml Constitutional: AAO x 3 Respiratory: chest is bilaterally symmetric, lungs clear to auscultation Cardiovascular: regular rate-rhythm, S1 and S2 Gastrointestional: soft, distended, audible bowel sounds Extremities: normal range of motion, non-tender, normal inspection Neurologic/Psychiatric: no motor/sensory deficits, alert, normal mood/affect, oriented x 3 Skin: normal color, warm/dry Results/Procedures: Labs Laboratory Tests 04/22/20 10:15: Blood Gas Puncture Site RT RADIAL, Blood Gas Patient Temperature 37.6, Arterial Blood pH 7.51H, Arterial Blood Partial Pressure CO2 30L, Arterial Blood Partial Pressure O2 77L, Arterial Blood HCO3 24, Arterial Blood Total CO2 24.6, Arterial Blood Oxygen Saturation 95, Arterial Blood Base Excess 0.9, Hammad Test YES-POS, Blood Gas Ventilator Setting NO, Blood Gas Inspired Oxygen 4 04/22/20 13:12: Lactic Acid Level 2.11*H Microbiology 04/19/20 MRSA Screen - Final, Complete MRSA not isolated 04/18/20 Blood Culture - Preliminary, Resulted No growth A/P: Assessment/Dx: Acute respiratory failure, saddle pulmonary embolism, Acute RV dysfunction, RV strain. Morbid obesity, Recent abdominal surgery, Positive D dimer, Positive cardiac enzymes. Left lower extremity DVT. Plan: Acute respiratory failure, respiratory distress. Positive D dimer, recent abdominal surgery. CT angiography of the chest showed saddle pulmonary embolism with large pulmonary embolism bilaterally. Urgent echocardiogram showed D- shaped septum with RV dysfunction and pulmonary hypertension. Significantly improved pulmonary condition. catheter directed thrombolysis was performed on 04/19/2020. Pulmonary angiography was done. 5 mg of tenecteplase was injected in right pulmonary artery and 5 mg of tenecteplase was injected in the left pulmonary artery. A pigtail catheter was left in the MPA and tenecteplase infusion was continued overnight. Pigtail catheter removed on 04/20/2020. Continue Eliquis 10 mg twice a day for 7 days. And then 5 mg twice a day for 6 months. Positive cardiac enzymes with shortness of breath. Likely secondary to large pulmonary embolism. Positive cardiac enzymes in a patient with large pulmonary embolism is a poor prognostic sign. Aggressive therapy is recommended. Morbid obesity Recent abdominal surgery, deferred to the primary team. Thank you for your consultation. Please call me if you have any questions. Lucina Gomez MD, FACP, FACC, FSCAI, FHRS, CCDS Interventional Cardiology Cardiac Electrophysiology Vascular Medicine and Endovascular Interventions Focused Exam Lactate Level 04/22/20 13:12: Lactic Acid Level 2.11*H Lactic Acid Level Laboratory Tests Test 04/22/20 13:12 Lactic Acid Level 2.11 MMOL/L (0.50-2.00) *Keisha JIMENEZ MD Apr 22, 2020 15:05
[2020-04-22] MEDS: lisINopril 20 MG (PRINIVIL) TABLET PO SCH (17:49)
[2020-04-22] MEDS: IBUPROFEN 600 MG (MOTRIN) TAB PO SCH (18:56)
[2020-04-22] MEDS: PIPERACILLIN/TAZOBACTAM (BULK) 4.5 GM in NS (IVPB) 100 ML IV SCH (20:35)
[2020-04-22] MEDS ORDERED: MELATONIN 3 MG TABLET PO PRN (20:45)
[2020-04-22] MEDS ORDERED: ONDANSETRON 4 MG/2 ML (SDV) Z0FRAN IVP PRN (20:45)
[2020-04-23] MEDS: IBUPROFEN 600 MG (MOTRIN) TAB PO SCH ×4 (00:46→17:51)
[2020-04-23] MEDS: RT-ALBUTEROL INHALER HFA (VENTOLIN HFA) 18 GM IH SCH ×5 (01:53→19:07)
[2020-04-23] MEDS: PIPERACILLIN/TAZOBACTAM (BULK) 4.5 GM in NS (IVPB) 100 ML IV SCH ×3 (04:27→20:25)
[2020-04-23 04:28] VITALS: BP 139/65
--- NOTE | 2020-04-23 05:38 | Pulmonary Progress Note ---
Subjective Time Seen by a Provider: 05:38 Sepsis Event Evaluation Height, Weight, BMI Height: '" Weight: lbs. oz. kg; 51.49 BMI Method: Focused Exam Lactate Level 04/22/20 13:12: Lactic Acid Level 2.11*H 04/22/20 15:13: Lactic Acid Level 1.45 Exam Exam Vital Signs Date Time Temp Pulse Resp B/P (MAP) Pulse Ox O2 Delivery O2 Flow Rate FiO2 04/23/20 04:28 36.6 85 21 139/65 (89) 96 Nasal Cannula 3.00 04/23/20 01:54 95 Nasal Cannula 5.00 04/23/20 01:00 77 04/22/20 23:27 36.6 83 17 106/58 (74) 94 Nasal Cannula 5.00 04/22/20 21:46 93 Nasal Cannula 5.00 04/22/20 21:00 Nasal Cannula 5.00 04/22/20 20:12 38.3 103 22 119/54 (75) 91 Nasal Cannula 5.00 04/22/20 19:00 106 04/22/20 18:56 38.6 04/22/20 18:33 95 Nasal Cannula 5.00 04/22/20 18:30 38.6 04/22/20 17:53 38.3 04/22/20 16:11 37.7 102 22 140/86 (104) 97 Nasal Cannula 3.00 04/22/20 14:55 93 Nasal Cannula 4.00 04/22/20 12:00 38.0 101 24 136/63 (87) 94 Nasal Cannula 3.00 04/22/20 11:45 37.8 04/22/20 11:14 38.0 04/22/20 10:21 91 Nasal Cannula 4.00 04/22/20 09:37 Nasal Cannula 4.00 04/22/20 08:00 37.6 105 22 137/67 (90) 92 Nasal Cannula 3.00 04/22/20 07:01 94 Nasal Cannula 5.00 04/22/20 07:00 100 I & O 04/23/20 07:00 Intake Total 2860 ml Balance 2860 ml Height & Weight Height: '" Weight: lbs. oz. kg; 51.49 BMI Method: General Appearance: No Apparent Distress, WD/WN, Obese HEENT: Normal ENT Inspection, Moist Mucous Membranes Neck: Normal Inspection, Supple Respiratory: Lungs Clear (though auscultation limited by body habitus); No Crackles, No Rhonci, No Wheezing Cardiovascular: Regular Rate, Rhythm, No Murmur Capillary Refill: Less Than 3 Seconds Gastrointestinal: normal bowel sounds, non tender, soft, other (midline ab dominal incision is clean dry and intact with a small eschar in the very middle of this without drainage or secondary cellulitis changes.) Extremity: No Calf Tenderness, No Pedal Edema Neurologic/Psychiatric: Alert, Oriented x3, Normal Mood/Affect Skin: Normal Color, Warm/Dry Results Lab Laboratory Tests 04/21/20 12:35 Assessment/Plan Assessment/Plan Extensive Bilateral Pulmonary Emboli -S/p Central TKN -Continue Eliquis COVID PCR negative Morbid obesity with probable OHS -Will need PSG as out patient Hemoptysis -Montior Spinal stenosis DVT ppx: Lovenox SAAD AMBRIZ DO Apr 23, 2020 05:38
[2020-04-23 07:50] VITALS: BP 125/64
[2020-04-23] MEDS: GABAPENTIN 300 MG (NEURONTIN) CAP PO SCH ×3 (09:22→20:25)
[2020-04-23] MEDS: APIXABAN 5 MG (ELIQUIS) TABLET PO SCH ×2 (09:23→20:25)
[2020-04-23] MEDS: ASPIRIN 81 MG CHEW (CHILDREN'S ASA) PO SCH (09:23)
--- NOTE | 2020-04-23 09:38 | Progress Note - Hospitalist ---
Subjective HPI/CC On Admission Date Seen by Provider: Apr 23, 2020 Time Seen by Provider: 09:32 Pt is a 54yoCM with a PMH of spinal stenosis and recent SBO s/p resection at [facility] in [place] who presented to the ER due to SOB and fever. He states that he had been doing well post op but then developed a fever over the past couple of days with SOB. He denies any sick contacts other than being in the hospital. He denies any abnormal leg swelling. He states his SOB is worse when he attempts to take a deep breath and he feels like he can only take half as deep of a breath a s normal. Subjective/Events-last exam Pt reports feeling better this morning. Still having hemoptysis but up and ambulatory and doing better. Focused Exam Lactate Level 04/22/20 13:12: Lactic Acid Level 2.11*H 04/22/20 15:13: Lactic Acid Level 1.45 Objective Exam Vital Signs Vital Signs Date Time Temp Pulse Resp B/P (MAP) Pulse Ox O2 Delivery O2 Flow Rate FiO2 04/23/20 07:50 36.9 86 18 125/64 (84) 93 Nasal Cannula 3.00 04/21/20 08:23 55 Capillary Refill : Less Than 3 Seconds General Appearance: No Apparent Distress, Obese Respiratory: Lungs Clear, No Accessory Muscle Use, Other (on 3lpm NC) Cardiovascular: Regular Rate, Rhythm, No Murmur Neurologic/Psychiatric: Alert, Oriented x3, Normal Mood/Affect Results/Procedures Lab Patient resulted labs reviewed. Imaging: Reviewed Imaging Report Assessment/Plan Assessment and Plan Assess & Plan/Chief Complaint Extensive Bilateral Pulmonary Emboli with saddle embolus Hemoptysis s/p catheter guided thrombolytics CTA with improved but persistent PE LLE DVT COVID PCR negative Continue Eliquis despite hemoptysis for now as risks outweigh benefits Discussed with Dr Plummer and we will monitor over the weekend but no indication for bronchoscopy at this time elevated troponin Likely due to PE Cardiology consulted, appreciate recs Telemetry trend Spinal stenosis Continue home gabapentin DVT ppx: Lovenox Critical Care Critically Ill Patient Diagnosis/Problems Diagnosis/Problems (1) Elevated d-dimer (2) Hypoxia (3) Morbid obesity (4) Person under investigation for COVID-19 Status: Resolved Resolution Date/Time: 04/23/20 @ 09:44 (5) Dyspnea Status: Acute Qualifiers: Dyspnea type: acute respiratory distress Qualified Codes: R06.03 - Acute respiratory distress (6) NSTEMI (non-ST elevated myocardial infarction) Status: Acute (7) Bilateral pulmonary embolism Status: Acute (8) Saddle pulmonary embolus Qualifiers: Chronicity: acute Acute cor pulmonale presence: unspecified Qualified Codes: I26.92 - Saddle embolus of pulmonary artery without acute cor pulmonale Clinical Quality Measures DVT/VTE Risk/Contraindication: Risk Factor Score Per Nursin RFS Level Per Nursing on Admit: 4+=Very High NATALY DANIELSON MD Apr 23, 2020 09:38
[2020-04-23] MEDS: ACETAMINOPHEN 500 MG TAB (TYLENOL) PO PRN ×2 (10:51→21:42)
[2020-04-23 11:20] VITALS: BP 133/61
[2020-04-23 15:49] VITALS: BP 87/57
--- NOTE | 2020-04-23 17:16 | Cardiology Progress Note ---
Cardiology SOAP Progress Note Subjective: improved shortness of breath. Objective: I&O/Vital Signs 04/23/20 04/23/20 04/23/20 04/23/20 07:00 07:01 07:50 09:00 Temp 36.9 Pulse 86 86 Resp 18 B/P (MAP) 125/64 (84) Pulse Ox 94 93 O2 Delivery Nasal Cannula Nasal Cannula Nasal Cannula O2 Flow Rate 3.00 3.00 3.00 04/23/20 04/23/20 04/23/20 04/23/20 10:23 11:20 12:49 14:30 Temp 37.6 Pulse 94 93 Resp 22 B/P (MAP) 133/61 (85) Pulse Ox 90 94 95 O2 Delivery Nasal Cannula Nasal Cannula Nasal Cannula O2 Flow Rate 3.00 3.00 3.00 04/23/20 15:49 Temp 36.3 Pulse 77 Resp 18 B/P (MAP) 87/57 (67) Pulse Ox 94 O2 Delivery Nasal Cannula O2 Flow Rate 3.00 04/23/20 00:00 Intake Total 2270 ml Balance 2270 ml Constitutional: AAO x 3 Respiratory: chest is bilaterally symmetric, lungs clear to auscultation Cardiovascular: regular rate-rhythm, S1 and S2 Gastrointestional: soft, distended, audible bowel sounds Extremities: normal range of motion, non-tender, normal inspection Neurologic/Psychiatric: no motor/sensory deficits, alert, normal mood/affect, oriented x 3 Skin: normal color, warm/dry Results/Procedures: Labs Microbiology 04/22/20 Blood Culture - Preliminary, Resulted No growth 04/19/20 MRSA Screen - Final, Complete MRSA not isolated A/P: Assessment/Dx: Acute respiratory failure, saddle pulmonary embolism, Acute RV dysfunction, RV strain. Morbid obesity, Recent abdominal surgery, Positive D dimer, Positive cardiac enzymes. Left lower extremity DVT. Plan: Acute respiratory failure, respiratory distress. Positive D dimer, recent abdominal surgery. CT angiography of the chest showed saddle pulmonary embolism with large pulmonary embolism bilaterally. Urgent echocardiogram showed D- shaped septum with RV dysfunction and pulmonary hypertension. Significantly improved pulmonary condition. catheter directed thrombolysis was performed on 04/19/2020. Pulmonary angiography was done. 5 mg of tenecteplase was injected in right pulmonary artery and 5 mg of tenecteplase was injected in the left pulmonary artery. A pigtail catheter was left in the MPA and tenecteplase infusion was continued overnight. Pigtail catheter removed on 04/20/2020. Continue Eliquis 10 mg twice a day for 7 days. And then 5 mg twice a day for 6 months. Positive cardiac enzymes with shortness of breath. Likely secondary to large pulmonary embolism. Positive cardiac enzymes in a patient with large pulmonary embolism is a poor prognostic sign. Aggressive therapy is recommended. Morbid obesity Recent abdominal surgery, deferred to the primary team. Thank you for your consultation. Please call me if you have any questions. Lucina Gomez MD, FACP, FACC, FSCAI, FHRS, CCDS Interventional Cardiology Cardiac Electrophysiology Vascular Medicine and Endovascular Interventions Focused Exam Lactate Level 04/22/20 13:12: Lactic Acid Level 2.11*H 04/22/20 15:13: Lactic Acid Level 1.45 Keisha GOMEZ MD Apr 23, 2020 17:16
[2020-04-23] MEDS: lisINopril 20 MG (PRINIVIL) TABLET PO SCH (17:44)
[2020-04-23] MEDS: morphine INJ 4 MG/ML 1 ML (VIAL/SYRINGE) IV PRN ×2 (17:51→21:41)
[2020-04-23 19:23] VITALS: BP 148/70
[2020-04-23 23:44] VITALS: BP 111/60
[2020-04-24] MEDS: IBUPROFEN 600 MG (MOTRIN) TAB PO SCH ×4 (01:00→19:14)
[2020-04-24] MEDS: morphine INJ 4 MG/ML 1 ML (VIAL/SYRINGE) IV PRN ×3 (02:05→22:10)
[2020-04-24] MEDS: RT-ALBUTEROL INHALER HFA (VENTOLIN HFA) 18 GM IH SCH ×6 (02:16→20:35)
[2020-04-24] MEDS: PIPERACILLIN/TAZOBACTAM (BULK) 4.5 GM in NS (IVPB) 100 ML IV SCH ×3 (05:00→20:03)
--- NOTE | 2020-04-24 05:07 | Pulmonary Progress Note ---
Subjective Time Seen by a Provider: 05:07 Sepsis Event Evaluation Height, Weight, BMI Height: '" Weight: lbs. oz. kg; 51.49 BMI Method: Focused Exam Lactate Level 04/22/20 13:12: Lactic Acid Level 2.11*H 04/22/20 15:13: Lactic Acid Level 1.45 Exam Exam Vital Signs Date Time Temp Pulse Resp B/P (MAP) Pulse Ox O2 Delivery O2 Flow Rate FiO2 04/24/20 02:16 94 Nasal Cannula 3.00 04/24/20 01:00 83 04/23/20 23:44 36.6 91 16 111/60 (77) 93 Nasal Cannula 3.00 04/23/20 21:42 38.7 04/23/20 21:30 38.7 04/23/20 21:00 Nasal Cannula 3.00 04/23/20 19:23 37.7 97 18 148/70 (96) 98 Nasal Cannula 3.00 04/23/20 19:07 92 Nasal Cannula 3.00 04/23/20 19:00 94 04/23/20 15:49 36.3 77 18 87/57 (67) 94 Nasal Cannula 3.00 04/23/20 14:30 95 Nasal Cannula 3.00 04/23/20 12:49 93 04/23/20 11:20 37.6 94 22 133/61 (85) 94 Nasal Cannula 3.00 04/23/20 10:23 90 Nasal Cannula 3.00 04/23/20 09:00 Nasal Cannula 3.00 04/23/20 07:50 36.9 86 18 125/64 (84) 93 Nasal Cannula 3.00 04/23/20 07:01 94 Nasal Cannula 3.00 04/23/20 07:00 86 I & O 04/24/20 07:00 Intake Total 1160 ml Balance 1160 ml Height & Weight Height: '" Weight: lbs. oz. kg; 51.49 BMI Method: General Appearance: No Apparent Distress, Obese HEENT: Normal ENT Inspection, Moist Mucous Membranes Neck: Normal Inspection, Supple Respiratory: Lungs Clear, No Accessory Muscle Use, Other (on 3lpm NC) Cardiovascular: Regular Rate, Rhythm, No Murmur Capillary Refill: Less Than 3 Seconds Gastrointestinal: normal bowel sounds, non tender, soft, other (midline abdominal incision is clean dry and intact with a small eschar in the very middle of this without drainage or secondary cellulitis changes.) Extremity: No Calf Tenderness, No Pedal Edema Neurologic/Psychiatric: Alert, Oriented x3, Normal Mood/Affect Skin: Normal Color, Warm/Dry Assessment/Plan Assessment/Plan Extensive Bilateral Pulmonary Emboli -S/p Central TKN -Continue Eliquis COVID PCR negative Morbid obesity with probable OHS -Will need PSG as out patient Hemoptysis -Montior Spinal stenosis DVT ppx: SAAD Joy DO Apr 24, 2020 05:07
[2020-04-24 07:23] VITALS: BP 102/64
[2020-04-24] MEDS: APIXABAN 5 MG (ELIQUIS) TABLET PO SCH ×2 (09:29→20:03)
[2020-04-24] MEDS: GABAPENTIN 300 MG (NEURONTIN) CAP PO SCH ×3 (09:29→20:03)
[2020-04-24] MEDS: ASPIRIN 81 MG CHEW (CHILDREN'S ASA) PO SCH (09:29)
[2020-04-24] MEDS: ACETAMINOPHEN 500 MG TAB (TYLENOL) PO PRN (09:37)
--- NOTE | 2020-04-24 10:45 | Progress Note - Hospitalist ---
Subjective HPI/CC On Admission Date Seen by Provider: Apr 24, 2020 Time Seen by Provider: 10:42 Pt is a 54yoCM with a PMH of spinal stenosis and recent SBO s/p resection at [facility] in [place] who presented to the ER due to SOB and fever. He states that he had been doing well post op but then developed a fever over the past couple of days with SOB. He denies any sick contacts other than being in the hospital. He denies any abnormal leg swelling. He states his SOB is worse when he attempts to take a deep breath and he feels like he can only take half as deep of a breath a s normal. Subjective/Events-last exam Pt reports doing well today. No further hemoptysis. Oxygen requirement coming down. Had a fever last night still. Focused Exam Lactate Level 04/22/20 13:12: Lactic Acid Level 2.11*H 04/22/20 15:13: Lactic Acid Level 1.45 Objective Exam Vital Signs Vital Signs Date Time Temp Pulse Resp B/P (MAP) Pulse Ox O2 Delivery O2 Flow Rate FiO2 04/24/20 09:57 92 Nasal Cannula 3.00 04/24/20 07:23 36.5 77 20 102/64 (77) 04/21/20 08:23 55 Capillary Refill : Less Than 3 Seconds General Appearance: No Apparent Distress, WD/WN, Obese Respiratory: Lungs Clear, No Accessory Muscle Use, Other (on 3lpm NC) Cardiovascular: Regular Rate, Rhythm, No Murmur Gastrointestinal: Normal Bowel Sounds, Non Tender, Soft Neurologic/Psychiatric: Alert, Oriented x3, Normal Mood/Affect Results/Procedures Lab Patient resulted labs reviewed. Imaging: Reviewed Imaging Report Assessment/Plan Assessment and Plan Assess & Plan/Chief Complaint Extensive Bilateral Pulmonary Emboli with saddle embolus Hemoptysis Pulmonary infarct s/p catheter guided thrombolytics CTA with improved but persistent PE LLE DVT COVID PCR negative Continue Eliquis despite hemoptysis for now as risks outweigh benefits Discussed with Dr Plummer and we will monitor over the weekend but no indication for bronchoscopy at this time Continue Zosyn due to fever IS elevated troponin Likely due to PE Cardiology consulted, appreciate recs Telemetry trend Spinal stenosis Continue home gabapentin DVT ppx: Lovenox Critical Care Critically Ill Patient Diagnosis/Problems Diagnosis/Problems (1) Elevated d-dimer (2) Hypoxia (3) Morbid obesity (4) Person under investigation for COVID-19 Status: Resolved Resolution Date/Time: 04/23/20 @ 09:44 (5) Dyspnea Status: Acute Qualifiers: Dyspnea type: acute respiratory distress Qualified Codes: R06.03 - Acute respiratory distress (6) NSTEMI (non-ST elevated myocardial infarction) Status: Acute (7) Bilateral pulmonary embolism Status: Acute (8) Saddle pulmonary embolus Qualifiers: Chronicity: acute Acute cor pulmonale presence: unspecified Qualified Codes: I26.92 - Saddle embolus of pulmonary artery without acute cor pulmonale Clinical Quality Measures DVT/VTE Risk/Contraindication: Risk Factor Score Per Nursin RFS Level Per Nursing on Admit: 4+=Very High NATALY DANIELSON MD Apr 24, 2020 10:45
[2020-04-24 11:29] VITALS: BP 116/68
--- NOTE | 2020-04-24 15:40 | Cardiology Progress Note ---
Cardiology SOAP Progress Note Subjective: improved shortness of breath. Objective: I&O/Vital Signs 04/24/20 04/24/20 04/24/20 04/24/20 04:00 06:24 07:00 07:23 Temp 36.4 36.5 Pulse 85 81 77 Resp 20 B/P (MAP) 102/64 (77) Pulse Ox 95 92 93 O2 Delivery Nasal Cannula Nasal Cannula Nasal Cannula O2 Flow Rate 3.00 3.00 3.00 04/24/20 04/24/20 04/24/20 04/24/20 09:57 11:29 12:30 14:04 Temp 36.6 Pulse 88 85 Resp 18 B/P (MAP) 116/68 (84) Pulse Ox 92 95 92 O2 Delivery Nasal Cannula Nasal Cannula Nasal Cannula O2 Flow Rate 3.00 3.00 3.00 04/24/20 00:00 Intake Total 1160 ml Balance 1160 ml Constitutional: AAO x 3 Respiratory: chest is bilaterally symmetric, lungs clear to auscultation Cardiovascular: regular rate-rhythm, S1 and S2 Gastrointestional: soft, distended, audible bowel sounds Extremities: normal range of motion, non-tender, normal inspection Neurologic/Psychiatric: no motor/sensory deficits, alert, normal mood/affect, oriented x 3 Skin: normal color, warm/dry Results/Procedures: Labs Microbiology 04/22/20 Blood Culture - Preliminary, Resulted No growth 04/19/20 MRSA Screen - Final, Complete MRSA not isolated A/P: Assessment/Dx: Acute respiratory failure, saddle pulmonary embolism, Acute RV dysfunction, RV strain. Morbid obesity, Recent abdominal surgery, Positive D dimer, Positive cardiac enzymes. Left lower extremity DVT. Plan: on admission Acute respiratory failure, respiratory distress. Positive D dimer, recent abdominal surgery. CT angiography of the chest showed saddle pulmonary embolism with large pulmonary embolism bilaterally. Urgent echocardiogram showed D-shaped septum with RV dysfunction and pulmonary hypertension. catheter directed thrombolysis. Significantly improved pulmonary condition. Continue Eliquis 10 mg twice a day for 7 days. And then 5 mg twice a day for 6 months. Positive cardiac enzymes with shortness of breath. Likely secondary to large pulmonary embolism. Morbid obesity Recent abdominal surgery, deferred to the primary team. Thank you for your consultation. Please call me if you have any questions. Lucina Gomez MD, FACP, FACC, FSCAI, FHRS, CCDS Interventional Cardiology Cardiac Electrophysiology Vascular Medicine and Endovascular Interventions Focused Exam Lactate Level 04/22/20 13:12: Lactic Acid Level 2.11*H 04/22/20 15:13: Lactic Acid Level 1.45 Keisha GOMEZ MD Apr 24, 2020 15:40
[2020-04-24 15:41] VITALS: BP 99/63
[2020-04-24] MEDS: lisINopril 20 MG (PRINIVIL) TABLET PO SCH (17:23)
[2020-04-24 17:24] VITALS: BP 99/60
[2020-04-24 19:05] VITALS: BP 122/75
--- NOTE | 2020-04-24 21:00 | NUR ---
Notified Dr. Barrios and Dr. Plummer that pt has a severe coughing episode and tiny bits of pink sputum. No new orders at this time.
[2020-04-25 00:27] VITALS: BP 123/72
[2020-04-25] MEDS: IBUPROFEN 600 MG (MOTRIN) TAB PO SCH ×3 (00:57→12:13)
[2020-04-25] MEDS: RT-ALBUTEROL INHALER HFA (VENTOLIN HFA) 18 GM IH SCH ×4 (02:00→13:59)
[2020-04-25] MEDS: PIPERACILLIN/TAZOBACTAM (BULK) 4.5 GM in NS (IVPB) 100 ML IV SCH ×2 (04:18→12:13)
[2020-04-25 04:45] VITALS: BP 112/56
[2020-04-25] MEDS: morphine INJ 4 MG/ML 1 ML (VIAL/SYRINGE) IV PRN (05:06)
[2020-04-25 06:13] LABS: HEMOGLOBIN 8.5 g/dL (13.3-17.7); MEAN PLATELET VOLUME 10.1 fL (9.0-12.2); WHITE BLOOD COUNT 4.5 10^3/uL (4.3-11.0)
[2020-04-25 08:00] VITALS: BP 127/77
--- NOTE | 2020-04-25 09:19 | Cardiology Progress Note ---
Subjective Date Seen by Provider: Apr 25, 2020 Time Seen by Provider: 09:15 Subjective/Events-last exam Patient is sitting up in chair, continues to c/o mild dyspnea. Denies any chest pain. Review of Systems General: No Chills, No Night Sweats, No Fatigue, No Malaise, No Appetite, No Other HEENT: No Head Aches, No Visual Changes, No Eye Pain, No Ear Pain, No Dysphas ia, No Sinus Congestion, No Post Nasal Drip, No Sore Throat, No Other Pulmonary: No Dyspnea, No Cough, No Pleuritic Chest Pain, No Other Cardiovascular: No: Chest Pain, Palpitations, Orthopnea, Paroxysmal Noc. Dyspnea, Edema, Lt Headedness, Other Focused Exam Lactate Level 04/22/20 13:12: Lactic Acid Level 2.11*H 04/22/20 15:13: Lactic Acid Level 1.45 Objective-Cardiology Exam Last Set of Vital Signs Vital Signs 04/21/20 04/25/20 08:23 10:36 Pulse Ox 94 O2 Delivery Nasal Cannula O2 Flow Rate 3.00 FiO2 55 Capillary Refill : Less Than 3 Seconds I&O Intake and Output 04/25/20 00:00 Intake Total 2080 ml Balance 2080 ml Intake Oral 1960 ml IV Total 120 ml # Voids 7 # Bowel Movements 2 General: Alert, Oriented X3, Cooperative HEENT: Atraumatic, PERRLA Neck: Supple, No JVD, No Thyromegaly Lungs: Other (diminished breath sounds bibasilarly) Heart: Regular Rate, Normal S1, Normal S2 Abdomen: Normal Bowel Sounds, Soft Extremities: No Clubbing, Other (+1 edema LLE, trace edema right) Results Lab Laboratory Tests 04/25/20 05:20 A/P-Cardiology Admission Diagnosis Acute respiratory failure DVT, bilat PE Obesity Spinal stenosis Assessment/Plan Acute respiratory failure, respiratory distress secondary to saddle emoboli, improved, continue to monitor. Large bilateral pulmonary emboli, Positive D dimer, recent abdominal surgery. CT angiography of the chest showed saddle pulmonary embolism with large pul monary embolism bilaterally. Urgent echocardiogram showed D-shaped septum with RV dysfunction and pulmonary hypertension. catheter directed thrombolysis. Significantly improved pulmonary condition. Continue Eliquis 10 mg twice a day for 7 days. And then 5 mg twice a day for 6 months. LLE DVT, continue Eliquis Positive cardiac enzymes with shortness of breath. Likely secondary to large pulmonary embolism. Continue to monitor. Morbid obesity Recent abdominal surgery, deferred to the primary team. Spinal stenosis, management per primary team Patient was seen and evaluated with Kelly, examination performed, management plan was discussed, agree with the current scribed note, I made few changes to the note using Italic font Patient is sitting in a chair, feeling better, no new complaint Discussed with Dr. Thompson, patient can be discharged on oral anticoagulation and follow-up as an outpatient Clinical Quality Measures DVT/VTE Risk/Contraindication: Risk Factor Score Per Nursin RFS Level Per Nursing on Admit: 4+=Very High KELLY OLGUIN Apr 25, 2020 9:19 am DHARMESH MARTINEZ MD Apr 25, 2020 11:34 am
[2020-04-25] MEDS: ASPIRIN 81 MG CHEW (CHILDREN'S ASA) PO SCH (09:28)
[2020-04-25] MEDS: GABAPENTIN 300 MG (NEURONTIN) CAP PO SCH ×2 (09:28→12:12)
[2020-04-25] MEDS: APIXABAN 5 MG (ELIQUIS) TABLET PO SCH (09:29)
[2020-04-25 12:00] VITALS: BP 120/75
[2020-04-25] MEDS ORDERED: APIX5TAB PO ×2 (13:32→13:33)
--- NOTE | 2020-04-25 13:56 | NUR ---
SPO2 93% ON O2 @ 3 LPM. SPO2 DROPPED TO 88% ON ROOM AIR @ REST AFTER 2 MINUTES. PLACED PT BACK ON O2 @ 2 LPM. SPO2 INCREASED TO 91%. Addendum: 04/25/20 at 1406 by DAISY CHAN RT Amended: Links added.
--- NOTE | 2020-04-25 14:55 | NUR ---
CM/SS finalized discharge. Plan: patient will return home with new oxygen today 04/25. DME: The patient was provided a patient preference form and chose [facility]. CM/SS faxed referral and spoke with Porsha. She reports they will send portable to the hospital. The patient reports he is feeling well today and is hopeful to go home. He denies any further needs or questions at this time.
--- NOTE | 2020-04-25 18:06 | Discharge Summary ---
Discharge Summary Hospital Course Was the Problem List Reviewed?: Yes Problems/Dx: (1) Saddle pulmonary embolus Qualifiers: Qualified Codes: I26.92 - Saddle embolus of pulmonary artery without acute cor pulmonale (2) Elevated d-dimer Status: Acute (3) Hypoxia Status: Acute (4) Morbid obesity Status: Chronic (5) Person under investigation for COVID-19 Status: Resolved (6) Dyspnea Status: Acute Qualifiers: Qualified Codes: R06.03 - Acute respiratory distress (7) NSTEMI (non-ST elevated myocardial infarction) Status: Acute (8) Bilateral pulmonary embolism Status: Acute Hospital Course Date of Admission: Apr 18, 2020 at 14:42 Admission Diagnosis : acute saddle pulmonary embolism Family Physician/Provider: Date of Discharge: 04/25/20 Discharge Diagnosis: acute saddle pulmonary embolism Hospital Course: Chadwick Morales is a 54-year-old male who presented with shortness of breath and was admitted with an acute saddle pulmonary embolism. Cardiology was consulted and performed catheter directed thrombolysis. He was also found to have a left lower extremity DVT. This was considered provoked due to a recent hospitalization due to small bowel obstruction which required a surgical resection. He was started on Eliquis. He required supplemental oxygen and was set up with 2 L continuously on discharge. He was discharged in stable condit ion. He should follow-up with his primary care physician in about a week. Labs and Pending Lab Test: Laboratory Tests 04/25/20 05:20: White Blood Count 4.5, Red Blood Count 3.15L, Hemoglobin 8.5L, Hematocrit 28L, Mean Corpuscular Volume 90, Mean Corpuscular Hemoglobin 27, Mean Corpuscular Hemoglobin Concent 30L, Red Cell Distribution Width 16.2H, Platelet Count 242, Mean Platelet Volume 10.1, Creatinine 0.95 Microbiology 04/22/20 Blood Culture - Preliminary, Resulted No growth 04/19/20 MRSA Screen - Final, Complete MRSA not isolated Home Meds Active Eliquis (Apixaban) 5 Mg Tablet 5 Mg PO BID 30 Days Reported Tums Ultra (Calcium Carbonate) 400 Mg Tab.chew 400-800 Mg PO PRN PRN Centrum Men's Tablet (Multivits,Ca,Min/Iron/FA/Lycop) 1 Each Tablet 1 Each PO DAILY Tylenol Extra Strength (Acetaminophen) 500 Mg Tablet 1,000 Mg PO Q6H PRN Neurontin (Gabapentin) 300 Mg Capsule 300 Mg PO TID Assessment/Pt Instructions take medications as prescribed. Begin taking Eliquis 5 mg twice daily. Follow- up with your primary care physician. Discharge Planning: <30 minutes discharge planning Discharge Instructions Discharge Diet: No Restrictions Activity as Tolerated: Yes Discharge Physical Examination Vital Signs Vital Signs Date Time Temp Pulse Resp B/P (MAP) Pulse Ox O2 Delivery O2 Flow Rate FiO2 04/25/20 15:00 04/25/20 13:59 91 Nasal Cannula 2.00 04/25/20 12:00 36.9 85 20 04/21/20 08:23 55 General Appearance: No Apparent Distress, Obese Respiratory: Lungs Clear, Normal Breath Sounds, No Respiratory Distress Cardiovascular: Regular Rate, Rhythm, No Edema, No Murmur Gastrointestinal: Normal Bowel Sounds, Non Tender, Soft Extremity: Normal Inspection, Non Tender, No Pedal Edema Skin: Normal Color, Warm/Dry Neurologic/Psychiatric: Alert, Oriented x3, No Motor/Sensory Deficits, Normal Mood/Affect Allergies: Coded Allergies: Tetanus Vaccines and Toxoid (Verified Allergy, Intermediate, Rash, 04/18/20) STATES HE GETS 104 FEVER ALONG WITH A RASH AND KNOTS WHERTE THE ADMINISTRATION OCCURED Discharge Summary Date of Admission Apr 18, 2020 at 14:42 Date of Discharge Apr 25, 2020 at 15:30 Discharge Date: Apr 25, 2020 Discharge Time: 15:30 Admission Diagnosis Dyspnea Discharge Diagnosis (1) Elevated d-dimer Status: Acute (2) Hypoxia Status: Acute (3) Morbid obesity Status: Chronic (4) Person under investigation for COVID-19 Status: Resolved (5) Dyspnea Status: Acute Qualifiers: Qualified Codes: R06.03 - Acute respiratory distress (6) NSTEMI (non-ST elevated myocardial infarction) Status: Acute (7) Bilateral pulmonary embolism Status: Acute (8) Saddle pulmonary embolus Qualifiers: Qualified Codes: I26.92 - Saddle embolus of pulmonary artery without acute cor pulmonale Clinical Quality Measures DVT/VTE Risk/Contraindication: Risk Factor Score Per Nursin RFS Level Per Nursing on Admit: 4+=Very High GYPSY LOWRY MD Apr 25, 2020 18:06
== END 2020-04-25 15:30 | disposition home or self-care (01) | DRG 175 ==
LOC: ER 12:41 → EDBD 12:41 → 4TH 14:42 → ICU 04-19 17:33 → 4TH 04-20 18:07
PROVIDERS: ADMIT Family Medicine; ATTEND Family Medicine
PROC: 4A023N6 Measurement of Cardiac Sampling and Pressure, Right Heart, Percutaneous Approach (ICD-10-PCS; principal; 2020-04-20)
PROC: B31T1ZZ Fluoroscopy of Left Pulmonary Artery using Low Osmolar Contrast (ICD-10-PCS; 2020-04-20)
PROC: B31S1ZZ Fluoroscopy of Right Pulmonary Artery using Low Osmolar Contrast (ICD-10-PCS; 2020-04-20)
PROC: 02PYX3Z Removal of Infusion Device from Great Vessel, External Approach (ICD-10-PCS; 2020-04-20)
DX: I26.92 Saddle embolus of pulmonary artery without acute cor pulmonale (principal); I21.4 Non-ST elevation (NSTEMI) myocardial infarction; J96.01 Acute respiratory failure with hypoxia; Z68.43 Body mass index [BMI] 50.0-59.9, adult; R04.2 Hemoptysis; I82.4Z2 Acute embolism and thrombosis of unspecified deep veins of left distal lower extremity; M48.00 Spinal stenosis, site unspecified; E66.01 Morbid (severe) obesity due to excess calories; Z20.828 Contact with and (suspected) exposure to other viral communicable diseases
CPT/HCPCS: 36014; 36415; 36600; 37211; 37214; 71045; 71275; 75743; 80048; 80053; 80061; 82565; 82805; 83605; 83735; 83874; 83880; 84100; 84145; 84484; 85025; 85027; 85379; 85610; 85730; 87040; 87081; 87635; 93005; 93041; 93451; 93568; 93970; 94640; 94664; 94760; 94761